=== PATIENT | male | born 1965 | race Caucasian/White ===

== ENCOUNTER 2025-10-11 09:36 | Outpatient (AMB) | payer OTHER, SELFPAY ==
[2025-10-11 09:42] VITALS: BMI 23.9
--- NOTE | 2025-10-11 09:42 | A.PHYSOV ---
Vital Signs 10/11/25 09:42 Height 5 ft 6 in Weight 148 lb BMI 23.9 Intake Visit Reasons: MRI followup Intake Note: Patient is a 60 year old male here today to review recent MRI. [employer] Required: No Allergies No Known Allergies Allergy (Verified 10/11/25 09:44) HPI Comments Details: History of Present Illness The patient is a 60 year old individual presenting for follow-up of chronic pain. The patient's primary complaint is left shoulder pain, which is associated with a lack of strength in the hands and a pulling sensation when attempting to grab objects. This significantly affects the patient's daily life. The patient's medical history is notable for a fall that resulted in a clavicle fracture. A recent MRI of the neck revealed four bulging discs, mild to moderate arthritis, and severe narrowing on the right at C3-4, though this is not believed to be related to the left-sided shoulder pain. The patient has an upcoming appointment with an orthopedist for further evaluation of the shoulder but is apprehensive about potential surgery. For self-management, the patient performs exercises learned in physical therapy using pulleys and also uses a heating pad. Due to pain, the patient sleeps in a recliner, and the current one is old and malfunctioning. The patient has experienced recent weight loss, which has helped to alleviate knee pain. The patient reports significant psychosocial stress related to a family property in [place] being destroyed by a friend, leading to financial strain from the sale and subsequent issues with a bank holding the check. Additional stress comes from a familial dispute over the proceeds of the house sale. Pain Description - Location: Pain is primarily in the left shoulder, with tenderness noted bilaterally in the upper shoulder/neck region. - Quality: Described as a pulling sensation, with associated crunchy sounds with movement. - Associated Symptoms: Weakness in the hands. - Exacerbating Factors: Worsens with movement and when attempting to grab objects. - Alleviating Factors: Temporary relief from trigger point injections, use of a heating pad, and sleeping in a recliner. - Impact on Function: The pain and weakness interfere with daily life and the ability to lift things. [facility] Surgical History (Updated 10/05/25 @ 09:02 by Radha Powers MA) H/O hernia repair Social History (Reviewed 10/11/25 @ 09:44 by JAYNE Abdi Alcohol intake: current Alcohol intake frequency: holidays/special occasions only Patient Tobacco Use Status: Never used Tobacco Review of Systems Narrative Review of Systems - Musculoskeletal: Reports left shoulder pain, hand weakness, a pulling sensation in the arm, and crepitus with movement. - Neurological: Reports a recent episode of toe swelling and a throbbing sensation after prolonged sitting. - Psychiatric: Reports feeling very stressed and frustrated. - Constitutional: Reports recent weight loss. - All other systems were reviewed and are negative. Physical Exam Exam Exam: Physical Exam Cervical Spine: Examination of the cervical spine, there is no visible swelling or deformity. He is tender to bilateral upper trapezius. He is otherwise nontender. Full range of motion of the cervical spine. Special Tests: Axial Compression test: Negative Spurlings test: Negative Lhermitte's sign is Negative Upper Extremities: Full range of motion bilateral upper extremities. Equal rubber curer strength bilaterally. Neuro: Sensation: Intact to upper extremities bilateral to light touch Strength C5 (Elbow Flexion): 5/5 on the left and 5/5 on the right. C6 (Elbow Ext): 5/5 on the left and 5/5 on the right. C7 (Elbow Ext): 5/5 on the left and 5/5 on the right. C8 (Finger Flex): 5/5 on the left and 5/5 on the right. T1 (Finger Abd/Add): 5/5 on the left and 5/5 on the right. DTR: C5 (Biceps): Left 2 Right 2 C6 (Brachioradialis): Left 1 Right 1 C7 (Triceps): Left 2 Right 2 Winter sign: Negative No pathologic clonus. No involuntary movement. Vital Signs: BMI result Body Mass Index 23.9 Office Procedures AMB Trigger Point Inject - Phy Therapeutic Injection Details: Trigger point injection bilateral upper trapezius : Patient was educated about the risks, complications and benefits of trigger point injection. Risks and complications include infection, nerve damage, bleeding, collapsed lung. After discussing these risks complications and benefits the patient is eager to proceed. The patient's left upper trapezius muscle spasm was marked cleansed with an alcohol prep. 1 mL of 1% lidocaine was injected into the trigger point with needling. Patient tolerated the procedure well without immediate complication. The procedure was repeated in the right. 16663-[id number] Point Injection 1 or 2 sites All charges added?: Procedure code (CPT) selection complete Office Meds lidocaine (PF) 20 mg/mL (2 %) injection solution Performing Provider: PROSPER Alves Performing Location: [facility] Administered by: PROSPER Alves on 10/11/25 12:36 Dose Route Admin Location Dispensed Lot Number Expiration Date NDC Nut Roaster Helper 20 mg IM 50 mL [id number] Total Dispensed Waste 50 mL 0 % Assessment & Plan Assessment & Plan (1) Cervicalgia: Code(s): M54.2 - Cervicalgia Category: Medical (2) Myalgia: Code(s): M79.10 - Myalgia, unspecified site Category: Medical Plan Pain Management - Affect: The patient reports feeling very stressed and frustrated due to the pain and its impact on daily life, as well as significant personal and financial stressors. - Analgesia: The patient uses a heating pad and home exercises for pain relief and requested trigger point injections during today's visit for further relief. - Activities of Daily Living: The patient's pain and weakness interfere with daily life, including lifting objects. - Sleep: The patient sleeps in a recliner to remain comfortable. - Aberrant Drug Related Behaviors: No aberrant behaviors were reported or observed. Plan Patient was informed and verbally consented to the use of an ambient scribe for clinic note documentation during this visit. 1. Chronic Left Shoulder Pain The patient complains of left shoulder pain with associated hand weakness and a pulling sensation. The patient will be seen by an orthopedist next week for further evaluation. For immediate relief, trigger point injections were administered in the office today. The patient is encouraged to continue the home exercise program with pulleys and use of a heating pad. 2. Cervicalgia Secondary To Degenerative Disc Disease And Arthritis The results of the recent cervical MRI were reviewed with the patient, which showed four bulging discs and mild to moderate arthritis. It was explained that these findings are unlikely to be the cause of the left shoulder pain. No new interventions are planned for the cervical spine at this time. 3. Pain-Related Sleep Disturbance The patient reports sleeping in a recliner for comfort. Given that the current recliner is old and malfunctioning, a prescription for a new durable medical equipment (DME) lift chair will be provided, with the understanding that insurance coverage is not guaranteed. 4. Acute Stress Reaction The patient reports significant stress from recent personal and financial events. The impact of stress on the patient's overall well-being and pain perception was acknowledged. Ongoing symptomatic pain management will be provided. Today consented to trigger point injection bilateral upper trapezius. He is given post-injection instructions, recommend: Moist heat compresses for 15 minutes 5 times daily. Continue his home exercise plan and medications as prescribed. Follow-up with our office as needed. Discussion Notes I reviewed the patient's cervical MRI results, which showed four bulging discs and mild to moderate arthritis. I explained that while there is severe nerve root narrowing on the right, it is unlikely to be the cause of the patient's left-sided shoulder pain. We discussed that the patient will follow up with orthopedics for further evaluation. I obtained consent and performed trigger point injections for symptomatic relief. I also agreed to write a prescription for a DME lift chair, informing the patient that insurance may not cover it. Patient Instructions - Continue with your home exercises and use of your heating pad for your shoulder and back pain. - Make sure to attend your appointment with the clinical field specialist next Friday to have your shoulder evaluated. - We will provide you with a prescription for a new recliner (lift chair). - Follow up in this clinic as needed for your pain. Orders: Orders AMB Trigger Point Injection - Physiatry Today M79.10 - Myalgia, unspecified site Coding Level of Care Code Tele Est Pt Level 3 (48959) Diagnoses Cervicalgia M54.2 Myalgia M79.10 CPT Codes Therapeutic Injection - Ther Injection 1: 06210-[id number] Point Injection 1 or 2 sites ([id number])
--- OUTSIDE RECORDS SUMMARY | 2025-10-11 10:29 | XMS_ITS | Clinical Summary ---
Author Organization 175 [facility] Address [address] [place] [address] Phone Care Team Providers Care Pressure Control Supervisor Name Role Phone Dionicio Sherman MD Primary Care Provider [phone] Allergies No known active allergies Medications acetaminophen (TYLENOL) 500 mg tablet Take 2 Tablets by mouth every 8 hours for 30 days. 06/04/20 21 Active MELATONIN ORAL Take by mouth. Active testosterone 20.25 mg/1.25 gram (1.62 %) gel in metered-dose pump APPLY 2 PUMPS DAILY INSTRUCTED TO A DRY UPPER BODY AREA 01/11/20 21 Active hydrOXYzine HCL (ATARAX) 25 mg tablet Take 1 tablet (25 mg total) by mouth 3 (three) times a day. 30 each 2 03/08/20 25 Active doxepin (SINEquan) 50 mg capsule Take 1 capsule (50 mg total) by mouth at bedtime. 03/09/20 25 Active gabapentin (NEURONTIN) 600 mg tablet Take 1 tablet (600 mg total) by mouth 1 (one) time each day. 03/23/20 25 Active clonazePAM (KlonoPIN) 0.5 mg tablet Take 1 tablet (0.5 mg total) by mouth 2 (two) times a day if needed. Active atorvastatin (LIPITOR) 10 mg tablet TAKE 1 TABLET (10 MG TOTAL) BY MOUTH 1 (ONE) TIME EACH DAY. 90 tablet 1 06/09/20 25 Active levothyroxine (SYNTHROID, LEVOTHROID) 50 mcg tablet TAKE 1 TABLET (50 MCG TOTAL) BY MOUTH 1 (ONE) TIME EACH DAY. 90 tablet 1 06/09/20 25 Active lisinopriL (PRINIVIL,ZEST RIL) 10 mg tabletIndicati ons:Hypertensi on, unspecified type TAKE 1 TABLET (10 MG TOTAL) BY MOUTH 1 (ONE) TIME EACH DAY. 90 tablet 09/06/20 Active cholecalcifero l (VITAMIN D-3) 50 mcg (2,000 unit) tablet Take 1 tablet (2,000 Units total) by mouth 1 (one) time each day. 90 tablet 1 09/30/20 25 Active tirzepatide, weight loss, (Zepbound) 10 mg/0.5 mL injection Inject 0.5 mL (10 mg total) under the skin every 7 (seven) days for 28 days. 2 mL 09/30/20 25 025 Active omeprazole (PriLOSEC) [address] capsule 09/02/20 Active diclofenac (VOLTAREN) 50 mg EC tablet Take 1 tablet (50 mg total) by mouth 2 (two) times a day. Do not crush, chew, or split. 28 tablet 2 10/04/20 Active clobetasoL (TEMOVATE) 0.05 % cream Apply topically 2 (two) times a day. 30 g 2 10/04/20 25 026 Active clobetasoL (TEMOVATE) 0.05 % cream Apply topically 2 (two) times a day. 30 g 2 01/07/20 25 025 Discontinued(Re order) tirzepatide, weight loss, (Zepbound) 7.5 mg/0.5 mL injection Inject 0.5 mL (7.5 mg total) under the skin every 7 (seven) days. 2 mL 09/02/20 25 025 Discontinued diclofenac (VOLTAREN) 50 mg EC tablet Take 1 tablet (50 mg total) by mouth 2 (two) times a day. Do not crush, chew, or split. 28 tablet 09/07/20 25 025 Discontinued(Re order) Zepbound 7.5 mg/0.5 mL injection INJECT 0.5 ML (7.5 MG TOTAL) UNDER THE SKIN EVERY 7 (SEVEN) DAYS. 2 mL 09/30/20 25 025 Discontinued omeprazole (PriLOSEC) [address] capsule TAKE 1 CAPSULE BY MOUTH EVERY DAY . DO NOT CRUSH OR CHEW. 30 capsule 5 10/04/20 25 025 Discontinued(Di scontinued by another clinician) Active Problems Problem Noted Date Diagnosed Date Depression 08/30/2024 Overview (08/30/2024): used to take effexor, clonazepam. no longer taking Incisional hernia 08/30/2024 Overweight (BMI 25.0-29.9) 01/22/2022 Recurrent ventral hernia 01/15/2021 Chronic abdominal pain 04/13/2020 Suicidal overdose ([facility] V24, [facility] V28) Overview (08/30/2024): [facility] 07/27/19-- 6mg klonopin, 100mg vistaril, 3600mg gabapentin Chronic bilateral low back pain without sciatica 03/25/2019 Adrenal adenoma 12/24/2018 Overview (08/30/2024): Left Adrenal Adenoma Insomnia 06/08/2018 Testosterone deficiency 06/08/2018 Pneumothorax, traumatic 05/04/2018 Overview (08/30/2024): S/P fall 04/02/18. Left rib and clavicle fractures Concussion syndrome 04/17/2018 Chronic allergic rhinitis 10/10/2016 Chronic sinusitis 10/10/2016 Erectile dysfunction 04/14/2015 Vitamin D deficiency 12/31/2012 Hypothyroid 04/20/2012 Anxiety 04/14/2012 Hyperlipidemia 12/17/2011 Overview (08/30/2024): Simvastatin (10 or 15 mg pt unsure) 5+ years Hypertension 12/17/2011 Overview (08/30/2024): Lisinopril 10 mg daily Hydrochlorothiazide 10 mg daily Both for 5+ years Encounters Date Type Department Care Team Description 09/30/2025 Telephone Bariatric Surgery - [address] [place] [address] Maral Villarreal PA 09/14/2025 11:10 AM EST - 09/14/2025 11:59 PM EST Hospital Encounter Radiology Department - [address] [phone] Cervicalgia; Radiculopathy, cervical region; Myalgia, other site Discharge Disposition: Home or Self Care 09/08/2025 11:00 AM EDT Office Visit [facility] - [facility] [address] [place], [place] [address], [place] [phone] Dionicio Sherman MD Chronic left shoulder pain (Primary Dx); Immunization due; Mild episode of recurrent major depressive disorder (CMS/HCC V24); Insomnia, unspecified type 09/06/2025 [facility] [address] [place], [place] [address] [place], [place] [phone] Dionicio Sherman MD 09/06/2025 Telephone Internal Medicine - [facility] [address] [place], [place] [address], [place] [phone] Dionicio Sherman MD 08/31/2025 Telephone Bariatric Surgery - [place] [address] [phone] Lilli Escalona MD 08/18/2025 Telephone Internal Medicine - [facility] [address] [place], [place] [address] [place], [place] [phone] Dionicio Sherman MD 08/08/2025 Telephone Bariatric Surgery [facility] [address] [phone] Lilli Escalona MD 07/26/2025 Telephone Internal Medicine - [facility] [address] [place], [place] [address], [place] [phone] Jocelin Hickey MA 07/22/2025 1:05 PM EDT - 07/22/2025 11:59 PM EDT Hospital Encounter Xray - [facility] [address] [facility] [place], [place] [phone] SOB (shortness of breath) Discharge Disposition: Home or Self Care 07/22/2025 11:30 AM EDT Office Visit [facility] - [facility] [address] [facility] [place] [address] Prasanna Mcgee NP SOB (shortness of breath) (Primary Dx); Tiredness; Hyperlipidemia, unspecified hyperlipidemia type; Hypothyroidism, unspecified type; Vitamin D deficiency; Snoring; Elevated vitamin B12 level 07/21/2025 1:30 PM EDT Office Visit Bariatric Surgery - [place] [address] [place] [address] Lilli Escalona MD Over weight (Primary Dx); Hypertension, unspecified type; Hyperglycemia from Last 3 Months Immunizations Immunization Administration Dates Next Due Influenza Quadravalent, 0.5m l (Fluzone High-dose) 65yo and older 09/21/2023,08/16/2018 Influenza trivalent, 0.5mL, preservative free (Fluarix; FluLaval; Fluzone) ages 6mo and older (Afluria) 3 years and older 07/23/2022,08/03/2021,07/19/2019,10/07,06/12/2016,07/18/2015,08/23/2014 Influenza trivalent, MDCK, 0 .5mL, preservative free (Flucelvax) 6mo and older 09/08/2025 Moderna Covid-19 Bivalent, O riginal + Ba.1 (Non-US Tradename Spikevax Bivalent) 07/23/2022 SubC Control SARS-CoV-2 COVID-19, mRNA, LNP-S, preservative free 02/26/2022,09/30/2021,02/19/2021,01/29 Pneumococcal conjugate 13 va lent (Prevnar 13, PCV13) 2mo and older 01/28/2020 Pneumococcal polysaccharide 23 valent (Pneumovax 23) 2yo and older 06/12/2016 Td Tetanus diptheria (Tdvax) 7yo and older 12/27/2022 Tdap Tetanus diptheria acell ular pertussis (Boostrix; Adacel) 7yo and older 04/14/2012 Zoster Live 11/28/2021,08/03/2021 Zoster recombinant (Shingrix ) 19yo and older 03/23/2018 Surgical History Surgery Date Site/Laterality Comments APPENDECTOMY PROCEDURE: SC APPENDEC INDICATED PURPOSE OTH MAJOR PX NOT SPX COLONOSCOPY 03/02/2015 PROCEDURE: HISTORICAL COLONOSCOPY; COMMENT: incomplete to 35 cm. OTHER SURGICAL HISTORY PROCEDURE: SC LAPS COLECTOMY PRTL W/END CLST & CLSR DSTL SGM HERNIA REPAIR PROCEDURE: HISTORICAL HERNIA REPAIR/ING OTHER SURGICAL HISTORY PROCEDURE: SC COLECTOMY PARTIAL W/ANASTOMOSIS Medical History Medical History Date Comments Hypertension 12/17/2011 DX:Hypertension Hyperlipidemia 12/17/2011 DX:Hyperlipidemi a Depression DX:Depression; C OMMENT: used to take effexor, clonazepam. no longer taking H/O colonoscopy 03/02/2015 DX:H/O colonosco py; COMMENT: Difficult sigmoid colon at incomplete CN 03/02/2015. Consider colonoscopy at the hospital with anesthesia 2019. Hypertension DX:Hypertension Colostomy care ([facility] V24, [facility] V28) DX:Colostomy care ([facility]) Depressive disorder DX:Depressiv e disorder Disorder of adrenal gland ([facility] [place]24) DX:Disorder of adrenal gland ([facility]) Nicotine dependence DX:Nicotine dependence Falling DX:Falling halfway (current) use of antibiotics DX:buttermaker helper (current) use of antibiotics Incisional hernia DX:Incisional hernia Adrenal adenoma 12/24/2018 DX:Adrenal adeno ma; COMMENT: Left Adrenal Adenoma Anxiety 04/14/2012 DX:Anxiety Chronic abdominal pain 04/13/2020 DX:Chroni c abdominal pain Chronic allergic rhinitis 10/10/2016 DX:Chr onic allergic rhinitis Chronic bilateral low back p ain without sciatica 03/25/2019 DX:Chronic bilateral low monica k pain without sciatica Chronic sinusitis 10/10/2016 DX:Chronic sin usitis Class 2 severe obesity due t o excess calories with serious comorbidity and body mass index (BMI) of 37.0 to 37.9 in adult 01/15/2021 DX:Class 2 severe obesity du e to excess calories with serious comorbidity and body mass index (BMI) of 37.0 to 37.9 in adult ([facility]) Erectile dysfunction 04/14/2015 DX:Erectile dysfunction Hypothyroid 04/20/2012 DX:Hypothyroid Primary insomnia 06/08/2018 DX:Primary inso mnia Suicidal overdose ([facility] V 24, [facility] V28) 07/29/2019 DX:Suicidal overdose (HCC); COMMENT: [facility] 07/27/19-- 6mg klonopin, 100mg vistaril, 3600mg gabapentin Testosterone deficiency 06/08/2018 DX:Testo sterone deficiency Tobacco abuse 02/10/2017 DX:Tobacco abuse Vitamin D deficiency 12/31/2012 DX:Vitamin D deficiency Class 1 obesity due to exces s calories with serious comorbidity and body mass index (BMI) of 32.0 to 32.9 in adult 01/15/2021 DX:Class 1 obesit y due to excess calories with serious comorbidity and body mass index (BMI) of 32.0 to 32.9 in adult Family History Medical History Relation Name Comments Stomach cancer Father COPD Mother Relation Name Status Comments Brother Alive Father (Age 84) Mother (Age 90) Sister Alive Social History Tobacco Use Types Packs/Day Years Used Date Smoking Tobacco: Former Cigarettes 0 Q uit: 11/10/2017 Smokeless Tobacco: Never Tobacco Cessation:Counseling Given: Not Answered Alcohol Use Standard Drinks/Week Comments Yes 0 (1 standard drink = 0.6 oz pur e alcohol) Housing Instability Answer Date Recorde d Are you worried that in the next 2 months you may not have stable housing? No 10/04/2024 Food Access & Nutrition Answer Date Rec orded Do you have access to a vari ety of food including fruits and vegetables? Yes 10/04/2024 Health Literacy Answer Date Recorded How often do you need to hav e someone help you when you read instructions, pamphlets, or other written material from your doctor or pharmacy? Never 10/04/2024 Caregiver: How often do you need to have someone help you when you read instructions, pamphlets, or other written material from your doctor or pharmacy? Not on file 10/04/2024 Financial Risk Answer Date Recorded How hard is it for you to pa y for the very basics like food, housing, medical care, and air conditioning / heating? Somewhat hard 10/04/2024 Transportation Answer Date Recorded Has the lack of transportati on kept you from meetings, work, or from getting things needed for daily living? No Has the lack of transportati on kept you from medical appointments or from getting medications? No 10/04/2024 Social Isolation Answer Date Recorded How often do you feel lonely or isolated from those around you? Sometimes 10/04/2024 Food Risk Answer Date Recorded Within the past 12 months we worried whether our food would run out before we got money to buy more. Never true 10/04/2024 Within the past 12 months th e food we bought just didn't last and we didn't have money to get more. Never true 10/04/2024 Dependent Care Answer Date Recorded Do you need help finding or paying for care for your loved ones. For example, children teacher or elderly care for an older adult? No 10/04/2024 Education Answer Date Recorded Do you think completing more education or training, like finishing a GED, going to college, or learning a trade, would be helpful for you? No 10/04/2024 Employment and Income Answer Date Recor ded During the last four weeks, have you been actively looking for work? Yes 10/04/2024 Living Situation Answer Date Recorded What is your living situation? Unrecognized valu e 10/04/2024 Sex and Gender Information Value Date Recorded Sex Assigned at Not on file Legal Sex Male 5:28 PM EST Gender Identity Not on file Sexual Orientation Not on file Obstetrics History Last Filed Vital Signs Vital Sign Reading Time Taken Comments Blood Pressure 114/70 09/08/2025 10:59 AM EDT Pulse 90 09/08/2025 10:59 AM EDT Temperature 36.6 C (97.8 F) 07/21/2025 1:41 PM EDT Respiratory Rate - - Oxygen Saturation 100% 07/07/2025 1:30 PM EDT Inhaled Oxygen Concentration - - Weight 74.4 kg (164 lb) 09/08/2025 10:59 AM EDT Height 167.6 cm (5' 6 ) 09/08/2025 10:59 AM EDT Body Mass Index 26.47 09/08/2025 10:59 AM EDT Plan of Treatment Upcoming Encounters Date Type Department Care Team (Late st Contact Info) Description 10/18/2025 1:30 PM EST Consult Orthopedic Surgery - [place] [address] [phone] Lis Walker MD [address] [address] 12/06/2025 8:30 AM EST Nutrition Bariatric Surgery - [place] [address] [phone] Magali Levy, RD [address] [address] 01/17/2026 10:45 AM EDT Office Visit Bariatric Surgery - [place] [address] [address] Lilli Escalona MD [address] [place] [address] Health Maintenance Due Date Last Done Comments Zoster Vaccines (2 of 2) 01/23/2022 022, 08/03/2021, 03/23/2018 Medicare Annual Wellness Visit 10/19/2022 Pneumococcal Vaccine: 50+ Years (3 of 3 - PCV20 or PCV21) 01/27/2025 01/28/2020, 06/12/2016 COVID-19 Vaccine ( season) 2025 08/05/2023, 07/23/2022, 02/26/2022, Additional history exists Social Influencers of Health Screening 10/04/2025 10/04/2024 Hypertension/CHF/CAD Annual BMP Blood Test 04/20/2026 04/20/2025, 01/07/2025 Colorectal Cancer Screening: Colonoscopy 12/14/2029 12/14/2019, 03/02/2015 Cholesterol Screening (Lipid Panel) 01/07/2030 01/07/2025, 04/09/2024, 04/09/2024 DTaP,Tdap,and Td Vaccines (3 - Td or Tdap) 12/27/2032 12/27/2022, 04/14/2012 RSV Immunization Adult Patients (1 - 1-dose 75+ series) 2038 Hepatitis C Screening Completed 06/03/2018 HIV Screening Completed 01/07/2025, 02/25/2017 Depression Screening Completed 01/11/2025, 04/09/20 24 Influenza Vaccine Completed 09/08/2025, , 08/05/2023, Additional history exists HIB Vaccines Aged Out No longer eligi ble based on patient's age to complete this topic HPV Vaccines Aged Out No longer eligi ble based on patient's age to complete this topic Hepatitis A Vaccines Aged Out No long er eligible based on patient's age to complete this topic Hepatitis B Vaccines Aged Out No long er eligible based on patient's age to complete this topic IPV Vaccines Aged Out No longer eligi ble based on patient's age to complete this topic MMR Vaccines Aged Out No longer eligi ble based on patient's age to complete this topic Meningococcal ACWY Vaccine Aged Out N o longer eligible based on patient's age to complete this topic Meningococcal B Vaccine Aged Out No l onger eligible based on patient's age to complete this topic RSV Immunization Patients Under 20 months Aged Out No longer eligible based on patient's age to complete this topic Varicella Vaccines Aged Out No longer eligible based on patient's age to complete this topic Procedures Procedure Name Priority Date/Time Associated Diagnosis Comments MR CERVICAL SPINE WO CONTRAST Routine 09/14/2025 12:03 PM EST Cervicalgia Radiculopathy, cervical region Myalgia, other site XR CHEST 2 VIEWS Routine 07/22/2025 1:14 PM EDT SOB (shortness of breath) HELICOBACTER PYLORI BREATH TEST Routine 07/22/2025 12:42 PM EDT Abdominal bloating VITAMIN D 25 HYDROXY Routine 07/22/2025 12:42 PM EDT Vitamin D deficiency THYROID STIMULATING HORMONE WITH REFLEX TO FREE T4 AND FREE T3 Routine 07/22/2025 12:42 PM EDT Hypothyroidism, unspecified type VITAMIN B12 Routine 07/22/2025 12:42 PM EDT Tiredness COMPREHENSIVE METABOLIC PANEL Routine 04/20/2025 2:33 PM EDT Epigastric pain HIV 1, 2 ANTIBODY, P24 ANTIGEN WITH REFLEX TO DIFFERENTIATION Routine 01/07/2025 9:11 AM EST STD exposure LIPID PANEL WITH REFLEX TO DIRECT LDL Routine 01/07/2025 9:11 AM EST Screening for hyperlipidemia DEPRESSION SCREENING Routine 04/09/2024 COLONOSCOPY Routine 12/14/2019 HEPATITIS C SCREENING Routine 06/03/2018 from Last 3 Months or Most Recently Relevant to Health Maintenance Results * MR Cervical Spine wo Contrast (09/14/2025 12:03 PM EST) Anatomical Region Laterality Modality C-spine, Spine Magnetic Resonan ce 09/14/2025 5:15 PM EST Impressions 09/15/2025 4:42 PM EST Impression: 1. Multilevel degenerative changes most significant at C3-C4 with severe right and mild left neuroforaminal stenosis and mild spinal canal stenosis. 2. Incidental arachnoid cyst within the posterior fossa -------- FINAL REPORT -------- Dictated By: Valerie Santiago Dictated Date: 09/14/2025 17:15 ET Assigned Physician: Valerie Santiago Reviewed and Electronically Signed By: Valerie Santiago Signed Date: 09/15/2025 16:42 ET Workstation ID: [id number] Transcribed By: Self Edit Transcribed Date: 09/14/2025 17:16 ET Narrative 09/15/2025 4:42 PM EST MRI CERVICAL SPINE Clinical Statement: chronic neck pain Comparison: Cervical spine radiograph from 04/17/2020 Technique: Multiplanar, multisequence MRI images of the cervical spine were obtained without intravenous contrast. Findings: There is a normal cervical lordosis. The craniocervical junction is normal. Vertebral body and disc space height are maintained. Vertebral body marrow is grossly within normal limits. Disc desiccation at multiple levels. Cord signal is normal. The visualized posterior fossa structures are normal. Incidentally noted probable arachnoid cyst within the posterior fossa. C2-C3: No neuroforaminal or spinal canal stenosis C3-C4: Broad-based disc bulge and uncovertebral arthropathy resulting in severe right and mild left neuroforaminal stenosis, mild spinal canal stenosis C4-C5: Broad-based disc bulge and central disc protrusion with uncovertebral arthropathy resulting in mild right neuroforaminal stenosis, no left-sided neuroforaminal stenosis, mild spinal canal stenosis C5-C6: Broad-based disc bulge with uncovertebral arthropathy resulting in moderate bilateral neuroforaminal stenosis and mild spinal canal stenosis C6-C7: Broad-based disc bulge without neuroforaminal or spinal canal stenosis C7-T1: No neuroforaminal or spinal canal stenosis Procedure Note Valerie Santiago MD - 09/15/2025 MRI CERVICAL SPINE Clinical Statement: chronic neck pain Comparison: Cervical spine radiograph from 04/17/2020 Technique: Multiplanar, multisequence MRI images of the cervical spinewere obtained without intravenous contrast. Findings: There is a normal cervical lordosis. The craniocervicaljunction is normal. Vertebral body and disc space height are maintained.Vertebral body marrow is grossly within normal limits. Disc desiccation atmultiple levels. Cord signal is normal. The visualized posterior fossastructures are normal. Incidentally noted probable arachnoid cyst withinthe posterior fossa. C2-C3: No neuroforaminal or spinal canal stenosis C3-C4: Broad-based disc bulge and uncovertebral arthropathy resulting insevere right and mild left neuroforaminal stenosis, mild spinal canalstenosis C4-C5: Broad-based disc bulge and central disc protrusion withuncovertebral arthropathy resulting in mild right neuroforaminal stenosis,no left-sided neuroforaminal stenosis, mild spinal canal stenosis C5-C6: Broad-based disc bulge with uncovertebral arthropathy resulting inmoderate bilateral neuroforaminal stenosis and mild spinal canalstenosis C6-C7: Broad-based disc bulge without neuroforaminal or spinal canalstenosis C7-T1: No neuroforaminal or spinal canal stenosis IMPRESSION: Impression: 1. Multilevel degenerative changes most significant at C3-C4 with severeright and mild left neuroforaminal stenosis and mild spinal canalstenosis. 2. Incidental arachnoid cyst within the posterior fossa -------- FINAL REPORT -------- Dictated By: Valerie Santiago Dictated Date: 09/14/2025 17:15 ET Assigned Physician: Valerie Santiago Reviewed and Electronically Signed By: Valerie Santiago Signed Date: 09/15/2025 16:42 ET Workstation ID: [id number] Transcribed By: Self Edit Transcribed Date: 09/14/2025 17:16 ET Dave CHENG IMG MRI PROCEDURES Final Resul t * XR Chest 2 Views (07/22/2025 1:14 PM EDT) Anatomical Region Laterality Modality Body Radiographic Winnie ging 07/22/2025 2:38 PM EDT Narrative 07/22/2025 2:40 PM EDT Chest, 2 views. History shortness of breath activity. Comparison with previous examinations, latest from 11/28/2020. There is no pneumothorax, pleural effusions or focal consolidations. Cardiomediastinal silhouette is stable in appearance. There is no significant interval change since prior study. CONCLUSIONS: No acute radiographic abnormalities. No significant interval change. -------- FINAL REPORT -------- Dictated By: Christy Mccabe Dictated Date: 07/22/2025 14:38 ET Assigned Physician: Christy Mccabe Reviewed and Electronically Signed By: Christy Mccabe Signed Date: 07/22/2025 14:40 ET Workstation ID: [id number] Transcribed By: Self Edit Transcribed Date: 07/22/2025 14:38 ET Procedure Note Christy Mccabe MD - 07/22/2025 Chest, 2 views. History shortness of breath activity. Comparison with previous examinations, latest from 11/28/2020. There is no pneumothorax, pleural effusions or focal consolidations.Cardiomediastinal silhouette is stable in appearance. There is nosignificant interval change since prior study. CONCLUSIONS: No acute radiographic abnormalities. No significant intervalchange. -------- FINAL REPORT -------- Dictated By: Christy Mccabe Dictated Date: 07/22/2025 14:38 ET Assigned Physician: Christy Mccabe Reviewed and Electronically Signed By: Christy Mccabe Signed Date: 07/22/2025 14:40 ET Workstation ID: [id number] Transcribed By: Self Edit Transcribed Date: 07/22/2025 14:38 ET us Prasanna Mcgee NP IMG XR PROCEDURES Final Result * Thyroid stimulating hormone with reflex to free t4 and free t3 (07/22/2025 12:42 PM EDT) TSH 1.72 0.40 - 4.00 mcIU/mL LAB CHEMISTRY METHOD 07/22/2025 4:06 PM EDT [facility] Blood Venous blood specimen / Unknown Venipuncture / Unknown 07/22/2025 12:42 PM EDT 07/22/2025 12:42 PM EDT us Prasanna Mcgee NP LAB BLOOD ORDERABLES Final Res ult Performing Organization Address City/[facility]/ZIP Co de Phone Number [facility] [address] [place] [address], [place] [phone] * Helicobacter pylori breath test (07/22/2025 12:42 PM EDT) [facility] H Pylori Breath Test Negative Negative LAB CHEMISTRY METHOD 07/23/2025 9:44 AM EDT [facility] Breath Oral cavity structure / Unknown Non-blood Collection / Unknown 07/22/2025 12:42 PM EDT 07/22/2025 12:42 PM EDT us Paloma Griffin NP LAB BODY FLUIDS AND STOOLS ORDE RABLES Final Result [facility] [address] [place] [address], [place] [phone] * Vitamin D 25 hydroxy (07/22/2025 12:42 PM EDT) Vit D, 25-Hydroxy 42.2 30.0 - 80.0 ng/mL LAB CHEMISTRY METHOD 07/22/2025 4:05 PM EDT [facility] Blood Venous blood specimen / Unknown Venipuncture / Unknown 07/22/2025 12:42 PM EDT 07/22/2025 12:42 PM EDT Prasanna Arely [employer] [facility] BLOOD ORDERABLES Final Res ult Performing Organization Address City/[facility]/ZIP Co de Phone Number [facility] [address] [place] [address], [place] [phone] * (ABNORMAL) Vitamin B12 (07/22/2025 12:42 PM EDT) [facility] Vitamin B-12 >2,000(H) 250 - 900 pcg/mL LAB CHEMISTRY METHOD 07/22/2025 4:13 PM EDT [facility] Blood Venous blood specimen / Unknown Venipuncture / Unknown 07/22/2025 12:42 PM EDT 07/22/2025 12:42 PM EDT us Prasanna Mcgee NP LAB BLOOD ORDERABLES Final Res ult Performing Organization Address [facility]/ZIP Co de Phone Number [facility] [address] [place] [address], [place] [phone] * (ABNORMAL) Comprehensive metabolic panel (04/20/2025 2:33 PM EDT) [facility] Sodium 136 133 - 145 mmol/L LAB CHEMISTRY METHOD 04/20/2025 7:16 PM EDT [facility] Potassium 4.0 3.5 - 5.5 mmol/L LAB CHEMISTRY METHOD 04/20/2025 7:16 PM EDT [facility] Chloride 102 96 - 110 mmol/L LAB CHEMISTRY METHOD 04/20/2025 7:16 PM EDT [facility] CO2 29 21 - 32 mmol/L LAB CHEMISTRY METHOD 04/20/2025 7:16 PM EDT [facility] Anion Gap 5 3 - 11 LAB CHEMISTRY METHOD 04/20/2025 7:16 PM [facility] Glucose 106(H) 70 - 100 mg/dL LAB CHEMISTRY METHOD 04/20/2025 7:16 PM [facility] BUN 18 5 - 25 mg/dL LAB CHEMISTRY METHOD 04/20/2025 7:16 PM [facility] Creatinine 0.91 0.70 - 1.30 mg/dL LAB CHEMISTRY METHOD 04/20/2025 7:16 PM [facility] eGFR 95 >=60 mL/min/1. 73m2 LAB CHEMISTRY METHOD 04/20/2025 7:16 PM [facility] Comment:Calculation based on the Chronic Kidney Disease Epidemiology Collaboration (CKD-EPI) equation refit without adjustment for race. BUN/Creatinine Ratio 19.8 LAB CHEMISTRY METHOD 04/20/2025 7:16 PM [facility] Calcium 9.6 8.5 - 10.5 mg/dL LAB CHEMISTRY METHOD 04/20/2025 7:16 PM [facility] AST (SGOT) 21 10 - 42 unit/L LAB CHEMISTRY METHOD 04/20/2025 7:16 PM [facility] ALT (SGPT) 34 10 - 60 unit/L LAB CHEMISTRY METHOD 04/20/2025 7:16 PM [facility] Alkaline Phosphatase 65 42 - 121 unit/L LAB CHEMISTRY METHOD 04/20/2025 7:16 PM [facility] Total Protein 7.5 6.0 - 8.0 g/dL LAB CHEMISTRY METHOD 04/20/2025 7:16 PM [facility] Albumin 4.3 3.2 - 5.0 g/dL LAB CHEMISTRY METHOD 04/20/2025 7:16 PM [facility] Total Bilirubin 1.1 0.0 - 1.4 mg/dL LAB CHEMISTRY METHOD 04/20/2025 7:16 PM EDT [facility] Blood Venous blood specimen / Unknown Venipuncture / Unknown 04/20/2025 2:33 PM EDT 04/20/2025 2:33 PM EDT us Dionicio Sherman MD LAB BLOOD ORDERABLES Final Res ult Performing Organization Address [facility]/ZIP Co de Phone Number [facility] [address] [place] [address], [place] [phone] * HIV 1,2 antibody, p24 antigen with reflex to differentiation (01/07/2025 9:11 AM EST) Pathologist [facility] HIV Combo AB/AG Negative Negative LAB CHEMISTRY METHOD 01/07/2025 2:35 PM EST [facility] Blood Venous blood specimen / Unknown Venipuncture / Unknown 01/07/2025 9:11 AM EST 01/07/2025 9:11 AM EST Narrative [facility] - 01/07/2025 2:35 PM EST This assay is a 4th generation assay allowing for earlier detection of HIV infection by detecting the presence of the HIV-1 p24 antigen as well as the traditional antibodies to HIV type 1 (including group O) and type 2. Use of a 4th generation assay is the current CDC recommendation for HIV screening. us Dionicio Sherman MD LAB BLOOD ORDERABLES Final Res ult Performing Organization Address [facility]/ZIP Co de Phone Number [facility] [address] [place] [address], [place] [phone] * Lipid panel with reflex to direct LDL (01/07/2025 9:11 AM EST) [facility] Cholesterol 121 0 - 200 mg/dL LAB CHEMISTRY METHOD 01/07/2025 12:22 PM EST [facility] Triglycerides 91 0 - 150 mg/dL LAB CHEMISTRY METHOD 01/07/2025 12:22 PM EST [facility] HDL 48 >=40 mg/dL LAB CHEMISTRY METHOD 01/07/2025 12:22 PM EST [facility] LDL Calculated 55 0 - 100 mg/dL LAB CHEMISTRY METHOD 01/07/2025 12:22 PM EST [facility] VLDL Cholesterol Samir 18.2 mg/dL LAB CHEMISTRY METHOD 01/07/2025 12:22 PM EST [facility] Non HDL Chol. (LDL+VLDL) 73 <145 mg/dL LAB CHEMISTRY METHOD 01/07/2025 12:22 PM EST [facility] Chol/HDL Ratio 2.5 0.0 - 4.4 LAB CHEMISTRY METHOD 01/07/2025 12:22 PM [facility] Blood Venous blood specimen / Unknown Venipuncture / Unknown 01/07/2025 9:11 AM EST 01/07/2025 9:11 AM EST Dionicio Sherman MD LAB BLOOD ORDERABLES Final Res ult [facility] [address] [place] [address], * Depression Screening (04/09/2024) [facility] Depression Screening abstracted Historical Provider HEALTH MAINTENANCE Final Result * Colonoscopy (12/14/2019) [facility] Colonoscopy No interpreta tion,abstr acted Anatomical Region Laterality Modality Other Historical Lizette SANDOVAL HEALTH MAINTENANCE Final Result * Hepatitis C Screening (06/03/2018) [facility] Hepatitis C Screening abstracted Historical Lizette SANDOVAL HEALTH MAINTENANCE Final Result from Last 3 Months or Most Recently Relevant to Health Maintenance Insurance [employer] MEDICARE Member Subscriber Plan / Payer (Ef fective 2020-Present) Name:CJ SIMMONS Relation to Subscriber:Self Name:Cj Simmons Payer ID:[id number] Group ID:[id number] Type:Not on file Address: [place] [address] [address] [place] [id number] Care Teams Pressure Control Supervisor Relationship Specialty Start Date End Date Dionicio Sherman MD [address] [place] [id number] PCP - General Internal Medicine 09/14/24
--- OUTSIDE RECORDS SUMMARY | 2025-10-11 10:29 | XMS_ITS | Encounter Summary ---
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 For example, child and adolescent psychologist or elderly care for an older adult? [...] on file Sexual Orientation Not on file documented as of this encounter Progress Notes * Dionicio Sherman MD - 09/06/2025 2:43 PM EDT I am not quite sure what his disability ( anxiety?) is however if he was deemed disabled than the letter needs to come from the specialist that said he was disabled * Yael Louis MA - 09/06/2025 1:47 PM EDT Please see letter dated 08/18 created in your absence Pt is stating it needs to state he is disabled, is he? I don't see any documentation of this * Diana Lance MA - 09/06/2025 1:27 PM EDT I was not involved with this letter. * Christy Ponce MA - 09/06/2025 10:56 AM EDT Letter was written by solange Mims to forms about [employer] denial, thank you. * Deidra Leyva - 09/06/2025 10:20 AM EDT Pt is requesting a new letter to be written by pcp pt was seen recently and letter was written however the [employer] declined it. Pt is on disability and per last message it was to state: that ptis disabled and unable to work for 12 consecutive months it was unclear and so they told him to speak to pcp to assist with this. Please call pt with any questions please call pt when completed documented in this encounter Plan of Treatment Upcoming Encounters Date Type Department Care Team (Late st Contact Info) Description 10/18/2025 1:30 PM EST Consult Orthopedic Surgery - [place] [address] [facility] [address] [place] [phone] Lis Walker MD 175 [facility] 160 [place] [address] 12/06/2025 8:30 AM EST Nutrition Bariatric Surgery - [place] 175 [facility] 120 [place] [phone] Magali Levy, KYAW 175 [facility] 120 [place] [phone] 01/17/2026 10:45 AM EDT Office Visit Bariatric Surgery - [place] [address] [facility] [address] [place] [address] Lilli Escalona MD [address] [place] [phone] documented as of this encounter Visit Diagnoses Not on filedocumented in this encounter Additional Health Concerns Assessment Noted Time PHQ-9 Depression Total Score: 0 01/12/20 25 10:07 AM EST documented as of this encounter Care Teams Customs Import Specialist Relationship Specialty Start Date End Date Dionicio Sherman MD [address] [place] [address] PCP - General Internal Medicine 09/14/24 documented as of this encounter
--- OUTSIDE RECORDS SUMMARY | 2025-10-11 10:29 | XMS_ITS | Clinical Summary ---
Author Organization [facility] Address [address] [address] Phone Care Team Providers Care Cottrell Operator Name Role Phone Dionicio Sherman MD Primary Care Provider + Allergies No known active allergies Medications MELATONIN ORAL Take by mouth. Active ARIPiprazole (ABILIFY) 5 MG tablet 03/05/2023 Active atorvastatin (LIPITOR) 10 MG tablet 03/09/2023 Active benztropine (COGENTIN) 0.5 MG tablet Take 1 tablet by mouth every morning. 03/01/2023 Active traZODone (DESYREL) 100 MG tablet 03/05/2023 Active sertraline (ZOLOFT) 100 MG tablet Take 1 tablet by mouth every morning. 02/20/2023 Active levothyroxine (SYNTHROID, LEVOTHROID) 50 MCG tablet Take 1 tablet by mouth every morning. 01/28/2023 Active VITAMIN D3 50 mcg (2,000 unit) capsule Take 1 capsule by mouth every morning. 02/28/2023 Active hydrOXYzine HCL (ATARAX) 10 MG tablet 03/03/2023 Active clonazePAM (KLONOPIN) 1 MG tablet Take 1 mg by mouth 2 (two) times a day. 02/20/2023 Active Active Problems Problem Noted Date Diagnosed Date Pannus, abdominal 03/13/2023 Skin laxity 03/13/2023 Family History Relation Status Comments Father Mother Social History Tobacco Use Types Packs/Day Years Used Date Smoking Tobacco: Never Assessed Education Answer Date Recorded Are you interested in more education? Not on estuardo e 03/08/2023 Are you concerned about learning? Not on file 03/08/2023 No 03/08/2023 No 03/08/2023 Digital Access Answer Date Recorded No 04/08/2023 No 04/08/2023 Reliable internet access at home? Not on file 04/08/2023 Device with a working camera? Not on file Sex and Gender Information Value Date Recorded Sex Assigned at Not on file Legal Sex Male 2:53 PM EDT Gender Identity Not on file Sexual Orientation Not on file Last Filed Vital Signs Vital Sign Reading Time Taken Comments Blood Pressure 130/72 03/11/2023 10:22 AM EDT Pulse 75 03/11/2023 10:22 AM EDT Temperature - - Respiratory Rate - - Oxygen Saturation - - Inhaled Oxygen Concentration - - Weight 73.9 kg (163 lb) 03/11/2023 10:22 AM EDT Height 163.8 cm (5' 4.5 ) 03/11/2023 10:22 AM ED T Body Mass Index 27.55 03/11/2023 10:22 AM EDT Plan of Treatment Health Maintenance Due Date Last Done Comments TSH LEVEL 1963 DEPRESSION SCREENING 1975 SMOKING Hx and SMOKELESS TOBACCO SCREENING 02/16/1976 HEPATITIS C SCREENING 1981 HIV ONE-TIME SCREENING (18-65 YEARS) 1981 SCREENING FOR DIABETES 1998 COLOGUARD 02/16/2008 COLONOSCOPY 02/16/2008 COLORECTAL CANCER SCREENING 02/16/2008 FIT TEST 02/16/2008 FOBT 02/16/2008 SIGMOIDOSCOPY 02/16/2008 VIRTUAL COLONOSCOPY 02/16/2008 ZOSTER VACCINES (2 of 2) 01/23/2022 022, 08/03/2021, 03/23/2018 Adult Td,Tdap Booster 04/14/2022 04/14/2012 PNEUMOCOCCAL VACCINES (50+ years) (3 of 3 - PCV20 or PCV21) 01/27/2025 01/28/2020, 06/12/2016 INFLUENZA VACCINE (#1) 2025 2, 08/03/2021, 07/19/2019, Additional history exists COVID-19 VACCINE ( season) 2025 02/26/2022, 09/30/2021, 02/19/2021, Additional history exists LIPID PANEL 01/17/2028 01/16/2023 RSV VACCINE (1 - 1-dose 75+ series) 2038 HEPATITIS A VACCINES Aged Out No long er eligible based on patient's age to complete this topic HIB VACCINES Aged Out No longer eligi ble based on patient's age to complete this topic MENINGOCOCCAL VACCINES (ACWY) Aged Out No longer eligible based on patient's age to complete this topic MENINGOCOCCAL VACCINES (B) Aged Out N o longer eligible based on patient's age to complete this topic Medical Devices Not on file Insurance MEDICARE PART A & B [facility] ONE CARE MEDICARE REPLACEMENT [place] [id number] MEDICARE PART A & B ONE CARE MEDICARE REPLACEMENT MEDICARE PART A & B [facility] CARE MEDICARE REPLACEMENT Member Subscriber Plan / Payer (Ef fective 2020-Present) Name:Doroteo Simmons Relation to Subscriber:Self Name:Doroteo Simmons Payer ID:[id number] (NAIC) Group ID:[id number] Type:Medicare Address: [address] [facility] MEDICARE PART A & B ONE CARE MEDICARE REPLACEMENT [place] [facility] MEDICARE PART A & B [facility] ONE CARE MEDICARE REPLACEMENT MEDICARE PART A & B [facility] ONE CARE MEDICARE REPLACEMENT Care Teams Cottrell Operator Relationship Specialty Start Date End Date Dionicio Sherman MD [address] [place] [id number] PCP - General Internal Medicine 02/13/23 Additional Source Comments The information contained in this document represents components of the legal health record. It is not the complete legal health record.[facility]
--- OUTSIDE RECORDS SUMMARY | 2025-10-11 10:29 | XMS_ITS | Encounter Summary ---
Author Organization [facility] Address [address] [place] [address] Care Team Providers Care Library Media Assistant Name Role Phone Dionicio Sherman MD Primary Care Provider [phone] Encounter Details Date Type Department Care Team (Late st Contact Info) Description 06/13/2025 Lab Requisition [facility] - Main Lab 299 [facility] [place] [phone] Farhat Hernandez PA 100 [facility] [address] [place] [phone] Testicular hypofunction Social History Tobacco Use Types Packs/Day Years [...] for your loved ones. For example, child development teacher or elderly care for an older [...] on file documented as of this encounter Plan of Treatment Upcoming Encounters Date Type Department Care Team (Late st Contact Info) Description 10/18/2025 1:30 PM EST Consult Orthopedic Surgery - [place] 160 175 [facility] 160 [place] [phone] Lis Walker MD 175 [facility] 160 [place] [address] 12/06/2025 8:30 AM EST Nutrition Bariatric Surgery - [place] 175 [facility] 120 [place] [phone] Magali Levy, RD [address] [phone] 01/17/2026 10:45 AM EDT Office Visit Bariatric Surgery - [place] [address] [facility] [address] [place] [phone] Lilli Escalona MD [address] [place] [phone] documented as of this encounter Procedures Procedure Name Priority Date/Time Associated Diagnosis Comments COMPLETE BLOOD COUNT Routine 06/13/2025 1:52 PM EDT Testicular hypofunction documented in this encounter Results * Complete blood count (06/13/2025 1:52 PM EDT) WBC 6.3 4.8 - 10.8 K/mcL LAB HEMETOLOGY METHOD [facility] RBC 5.30 4.50 - 5.50 M/mcL LAB HEMETOLOGY METHOD 06/13/2025 7[facility] Hemoglobin 16.1 13.5 - 17.5 g/dL LAB HEMETOLOGY METHOD 06/13/2025 7:08 PM [facility] Hematocrit 48.8 42.0 - 54.0 % LAB HEMETOLOGY METHOD 06/13/2025 7:[facility] MCV 92.1 79.0 - 98.0 FL LAB HEMETOLOGY METHOD 06/13/2025 7:08 PM [facility] MCH 30.4 27.0 - 32.0 pcg LAB HEMETOLOGY METHOD 06/13/2025 7:08 PM [facility] MCHC 33.0 32.0 - 37.0 g/dL LAB HEMETOLOGY METHOD 06/13/2025 7:08 PM [facility] RDW 13.2 11.0 - 15.0 % LAB HEMETOLOGY METHOD 06/13/2025 7:08 PM EDT [facility] Platelets 282 130 - 400 K/mcL LAB HEMETOLOGY METHOD 06/13/2025 7:08 PM EDT [facility] MPV 9.9 7.0 - 11.0 FL LAB HEMETOLOGY METHOD 06/13/2025 7:08 PM EDT [facility] NRBC 0.0 <1.0 % LAB HEMETOLOGY METHOD 06/13/2025 7:08 PM EDT [facility] NRBC Absolute 0.00 <0.10 K/mcL LAB HEMETOLOGY METHOD 06/13/2025 7:08 PM EDT [facility] Blood Venous blood specimen / Unknown 06/13/2025 1:52 PM EDT 06/13/2025 5:47 PM EDT Farhat CHENG LAB BLOOD ORDERABLES Final Result [facility] [address] [place] [address], documented in this encounter Visit Diagnoses Diagnosis Testicular hypofunction Other testicular hypofunction documented in this encounter Additional Health Concerns Assessment Noted Time PHQ-9 Depression Total Score: 0 01/12/20 25 10:07 AM EST documented as of this encounter Care Teams Library Media Assistant Relationship Specialty Start Date End Date Dionicio Sherman MD [address] [place] [address] PCP - General Internal Medicine 09/14/24 documented as of this encounter
--- OUTSIDE RECORDS SUMMARY | 2025-10-11 10:29 | XMS_ITS | Encounter Summary ---
Author Organization [facility] Address [address] [place] [address] Care Team Providers Care Commercial Lending Vice President Name Role Phone Dionicio Sherman MD Primary Care Provider [phone] Reason for Visit * Reason Onset Date Comments Med Refill 09/30/2025 Zepbound w/titra tion Encounter Details Date Type Department Care Team (Late st Contact Info) Description 09/30/2025 Telephone Bariatric Surgery - [place] 175 [facility] [address] [place] [address] Maral Villarreal PA [address] [place] [address] Social History Tobacco Use Types Packs/Day Years [...] for your loved ones. For example, child nutrition manager or elderly care for an older adult? [...] as of this encounter Progress Notes * Christy Silva - 09/30/2025 9:43 AM EST Patient did well on Zepbound 7.5 mgs and would like a refill with titration. If appropriate, please send script for Zepbound 10 mgs to their pharmacy. The patient does have a follow up in 12/06/2025 documented in this encounter Plan of Treatment Upcoming Encounters Date Type Department Care Team ([facility] st Contact Info) Description 10/18/2025 1:30 PM EST Consult Orthopedic Surgery - [place] [address] [phone] Lis Walker MD [address] [phone] 12/06/2025 8:30 AM EST Nutrition Bariatric Surgery - [address] [address] Magali Levy, KYAW [address] [address] 01/17/2026 10:45 AM EDT Office Visit Bariatric Surgery [address] [address] Lilli Escalona MD 230 [place] [phone] documented as of this encounter Visit Diagnoses Not on filedocumented in this encounter Additional Health Concerns Assessment Noted Time PHQ-9 Depression Total Score: 0 01/12/20 25 10:07 AM EST documented as of this encounter Care Teams Commercial Lending Vice President Relationship Specialty Start Date End Date Dionicio Sherman MD [address] [place] [address] PCP - General Internal Medicine 09/14/24 documented as of this encounter
--- OUTSIDE RECORDS SUMMARY | 2025-10-11 10:29 | XMS_ITS | Encounter Summary ---
Author Organization [facility] Address [address] [place] [address] Care Team Providers Care Investment Accountant Name Role Phone Dionicio Sherman MD Primary Care Provider [phone] Encounter Details Date Type Department Care Team (Late st Contact Info) Description 12/13/2024 Lab Requisition [facility] - Main Lab 299 [facility] [place] [phone] Olayinka Degroot, PROSPER 100 [facility] [address] [place] [phone] Testicular hypofunction Social History Tobacco Use Types [...] care for your loved ones. For example, children's ministry director or elderly care for an older adult? [...] 1:30 PM EST Consult Orthopedic Surgery - [place] 160 175 [facility] 160 [place] [phone] Lis Walker MD 175 [facility] 160 [place] [address] 12/06/2025 8:30 AM EST Nutrition Bariatric Surgery - [place] 175 [facility] 120 [place] [phone] Magali Levy, KYAW 175 [facility] 120 [place] [address] 01/17/2026 10:45 AM EDT Office Visit Bariatric Surgery - [place] [address] [facility] [address] [place] [phone] Lilli Escalona MD [address] [place] [phone] documented as of this encounter Procedures Procedure Name Priority Date/Time Associated Diagnosis Comments COMPLETE BLOOD COUNT Routine 12/13/2024 12:21 PM EST Testicular hypofunction documented in this encounter Results * Complete blood count (12/13/2024 12:21 PM EST) WBC 7.6 4.8 - 10.8 K/mcL LAB HEMETOLOGY METHOD 12/13/2024 2:24 PM [facility] RBC 5.50 4.50 - 5.50 M/mcL LAB HEMETOLOGY METHOD 12/13/2024 2:24 PM [facility] Hemoglobin 16.7 13.5 - 17.5 g/dL LAB HEMETOLOGY METHOD 12/13/2024 2:24 PM [facility] LAB Hematocrit 49.4 42.0 - 54.0 % LAB HEMETOLOGY METHOD 12/13/2024 2:24 PM [facility] LAB MCV 90.5 79.0 - 98.0 FL LAB HEMETOLOGY METHOD 12/13/2024 2:24 PM [facility] LAB MCH 30.6 27.0 - 32.0 pcg LAB HEMETOLOGY METHOD 12/13/2024 2:24 PM [facility] LAB MCHC 33.8 32.0 - 37.0 g/dL LAB HEMETOLOGY METHOD 12/13/2024 2:24 PM [facility] LAB RDW 13.6 11.0 - 15.0 % LAB HEMETOLOGY METHOD 12/13/2024 2:24 PM EST [facility] LAB Platelets 258 130 - 400 K/mcL LAB HEMETOLOGY METHOD 12/13/2024 2:24 PM EST [facility] LAB MPV 11.0 7.0 - 11.0 FL LAB HEMETOLOGY METHOD 12/13/2024 2:24 PM EST [facility] LAB NRBC 0.0 <1.0 % LAB HEMETOLOGY METHOD 12/13/2024 2:24 PM EST [facility] NRBC Absolute 0.00 <0.10 K/mcL LAB HEMETOLOGY METHOD 12/13/2024 2:24 PM EST [facility] Blood Venous blood specimen / Unknown 12/13/2024 12:21 PM EST 12/13/2024 1:56 PM EST us Olayinka Degroot PA LAB BLOOD ORDERABLES Final Res ult [facility] [address] [place] [address], documented in this encounter Visit Diagnoses Diagnosis Testicular hypofunction Other testicular hypofunction documented in this encounter Additional Health Concerns Assessment Noted Time PHQ-9 Depression Total Score: 0 10/04/20 24 11:55 AM EST documented as of this encounter Care Teams Investment Accountant Relationship Specialty Start Date End Date Dionicio Sherman MD [address] [place] [phone] PCP - General Internal Medicine 09/14/24 documented as of this encounter
== END 2025-10-11 10:04 | disposition home or self-care (01) ==
LOC: HO.HPHYS 09:36
PROVIDERS: PCP Internal Medicine; Visit Provider Physician Assistant
DX: M54.2 Cervicalgia (principal); M79.10 Myalgia, unspecified site
CPT/HCPCS: 20552; 99213

== ENCOUNTER → 2025-10-11 09:36 | Outpatient (BNVA) | payer OTHER, SELFPAY | PROVIDERS: PCP Internal Medicine; Visit Provider Physician Assistant | DX: G89.29 Other chronic pain (principal); M47.812 Spondylosis without myelopathy or radiculopathy, cervical region; M50.30 Other cervical disc degeneration, unspecified cervical region; M79.10 Myalgia, unspecified site; M25.512 Pain in left shoulder; F43.0 Acute stress reaction | CPT/HCPCS: 20552; 99212; J2003 ==

== ENCOUNTER 2025-11-08 13:33 | Outpatient (AMB) | payer OTHER, SELFPAY ==
[2025-11-08 13:35] VITALS: BMI 23.9
--- NOTE | 2025-11-08 13:35 | A.PHYSOV ---
Vital Signs 11/08/25 13:35 Height 5 ft 6 in Weight 148 lb BMI 23.9 Intake Visit Reasons: trigger point injection on Neck Feltmaker Required: No Allergies No Known Allergies Allergy (Verified 10/11/25 09:44) [facility] Surgical History (Updated 10/05/25 @ 09:02 by Radha Powers MA) H/O hernia repair Social History Alcohol intake: current Alcohol intake frequency: holidays/special occasions only Patient Tobacco Use Status: Never used Tobacco Physical Exam Vital Signs: BMI result Body Mass Index 23.9 Office Procedures AMB Trigger Point Inject - Phy Therapeutic Injection Details: Trigger point injection bilateral upper trapezius: Patient was educated about the risks, complications and benefits of trigger point injection. Risks and complications include infection, nerve damage, bleeding, collapsed lung. After discussing these risks complications and benefits the patient is eager to proceed. The patient's left upper trapezius muscle spasm was marked cleansed with an alcohol prep. 1 mL of 1% lidocaine was injected into the trigger point with needling. Patient tolerated the procedure well without immediate complication. The procedure was repeated on the right. 32454-Ktjllrs Point Injection 1 or 2 sites All charges added?: Procedure code (CPT) selection complete Office Meds lidocaine (PF) 20 mg/mL (2 %) injection solution Performing Provider: PROSPER Alves Performing Location: [facility] Administered by: PROSPER Alves on 11/08/25 16:52 Dose Route Admin Location Dispensed Lot Number Expiration Date [facility] Food Service Specialist 40 mg IM 5 mL [id number] [facility] Total Dispensed Waste 5 mL 60 % Assessment & Plan Assessment & Plan (1) Myalgia: Code(s): M79.10 - Myalgia, unspecified site Category: Medical Plan Mr. Simmons is a 60-year-old male seen in evaluation today for myofascial pain. Today consented to trigger point injection bilateral upper trapezius. He was given post-injection instructions, recommend: Moist heat compresses for 15 minutes up to 5 times daily. New appropriate water intake. If his neck pain does not markedly improved we will consider C6-7 ANA. Orders: Orders AMB Trigger Point Injection - Physiatry Today M79.10 - Myalgia, unspecified site Coding Level of Care Code Procedure Only Diagnoses Myalgia M79.10 CPT Codes Therapeutic Injection - Ther Injection 1: 13160-Tfmqucu Point Injection 1 or 2 sites ([id number])
--- OUTSIDE RECORDS SUMMARY | 2025-11-08 17:26 | XMS_ITS | Continuity of Care Document ---
Author Name Aaron Dubois Address [address] [place] [address] Organization Unknown Address [address] [place] [address] Medications No known medications Problems No known problems
--- OUTSIDE RECORDS SUMMARY | 2025-11-08 17:26 | XMS_ITS | Encounter Summary ---
Author Organization [facility] Address [address] [place] [address] Care Team Providers Care Pure Pak Machine Operator Name Role Phone Dionicio Sherman MD Primary Care Provider [phone] Encounter Details Date Type Department Care Team (Late st Contact Info) Description 12/13/2024 Lab Requisition [facility] - Main Lab [address] [facility] [place] [phone] Olayinka Degroot, PROSPER [facility] [employer] [facility] [address] [place] [phone] Testicular hypofunction Social History Tobacco Use Types [...] for your loved ones. For example, child health associate or elderly care for an older adult? [...] Information Value Date Recorded Sex Assigned at Male 10/11/2025 10:44 AM EST Legal Sex Male 5:28 PM EST Gender Identity Male 10/11/2025 10:44 AM EST Sexual Orientation Lesbian or Rosario 10/11/2025 10 :44 AM EST documented as of this encounter Plan of Treatment Upcoming Encounters Date Type Department Care Team (Late st Contact Info) Description 12/06/2025 8:30 AM EST Nutrition Bariatric Surgery - [place] [address] [address] Magali Levy, KYAW [address] [address] 01/17/2026 10:45 AM EDT Office Visit Bariatric Surgery - [address] [phone] Lilli Escalona MD [address] [place] [phone] documented as of this encounter Procedures Procedure Name Priority Date/Time Associated Diagnosis Comments COMPLETE BLOOD COUNT Routine 12/13/2024 12:21 PM EST Testicular hypofunction documented in this encounter Results * Complete blood count (12/13/2024 12:21 PM EST) WBC 7.6 4.8 - 10.8 K/mcL LAB HEMETOLOGY METHOD 12/13/2024 2:[address] [facility] RBC 5.50 4.50 - 5.50 M/mcL LAB HEMETOLOGY METHOD 12/13/2024 2:[address] [facility] Hemoglobin 16.7 13.5 - 17.5 g/dL LAB HEMETOLOGY METHOD 12/13/2024 2:[address] [facility] Hematocrit 49.4 42.0 - 54.0 % LAB HEMETOLOGY METHOD 12/13/2024 2:[address] [facility] MCV 90.5 79.0 - 98.0 FL LAB HEMETOLOGY METHOD 12/13/2024 2:[address] [facility] MCH 30.6 27.0 - 32.0 pcg LAB HEMETOLOGY METHOD 12/13/2024 2:[address] [facility] MCHC 33.8 32.0 - 37.0 g/dL LAB HEMETOLOGY METHOD 12/13/2024 2:[address] [facility] RDW 13.6 11.0 - 15.0 % LAB HEMETOLOGY METHOD 12/13/2024 2:[address] [facility] Platelets 258 130 - 400 K/mcL LAB HEMETOLOGY METHOD 12/13/2024 2:[address] [facility] MPV 11.0 7.0 - 11.0 FL LAB HEMETOLOGY METHOD 12/13/2024 2:24 PM EST [facility] NRBC 0.0 <1.0 % LAB HEMETOLOGY METHOD 12/13/2024 2:24 PM EST [facility] NRBC Absolute 0.00 <0.10 K/mcL LAB HEMETOLOGY METHOD 12/13/2024 2:24 PM EST [facility] Blood Venous blood specimen / Unknown 12/13/2024 12:21 PM EST 12/13/2024 1:56 PM EST us Olayinka R Zane PA LAB BLOOD ORDERABLES Final Res ult [facility] [address] [place] [address], documented in this encounter Visit Diagnoses Diagnosis Testicular hypofunction Other testicular hypofunction documented in this encounter Additional Health Concerns Assessment Noted Time PHQ-9 Depression Total Score: 0 10/04/20 24 11:55 AM EST documented as of this encounter Care Teams Pure Pak Machine Operator Relationship Specialty Start Date End Date Dionicio Sherman MD [address] [place] [address] PCP - General Internal Medicine 09/14/24 documented as of this encounter
--- OUTSIDE RECORDS SUMMARY | 2025-11-08 17:26 | XMS_ITS | Data Portability ---
Author Organization [place] [facility], Allergy Address [address] [place] [phone] Assessment Encounter Date Assessment Date Assessment LastModified by Organization Details LastModified Time 12/21/2024 12/21/2024 Patient with symptoms and history consistent with Eustachian tube dysfunction in the left ear. Today symptoms are minimal and the middle ear space is well-aerated without retraction. Type A tracing on tympanogram. No conductive component to the hearing loss. Reviewed pathophysiology of Eustachian tube dysfunction on diagram and patient/parent understands. Recommend trial of intranasal steroid spray; risks, rationale, and crossed-hand application technique reviewed and all questions were answered.As he has previously been failed by Flonase and Nasacort, will try budesonide spray. He will follow up with MD in 8-12 weeks if there is no improvement. He is free to cancel this appointment if his symptoms improve. Discussed he could also try a different oral antihistamine; tachyphylaxis reviewed and patient understands. Audiometric testing demonstrates bilateral neurosensory hearing loss without significant asymmetry. Speech recognition is good and amplification is not currently indicated. Recommend repeat audiometric testing in 1-2 years or with perceived change. [email or web address] Not available 12/21/2024 10:38:27 03/21/2025 03/21/2025 60-year-old male presents today for feeling of blockage in his left ear for almost 10 years. He has been evaluated multiple times in the office and is had allergy testing, tried jaw joint precautions, has had head imaging. Audiogram at his last visit reviewed showing borderline normal downsloping to mild sensorineural loss bilaterally with type A tymps. Middle ears are well aerated on exam. I did perform flexible nasopharyngoscopy to evaluate the ETD orifices which are normal. He does have a septal perforation which is clean and dry. I reassured him on his exam. We discussed that his symptoms are likely multifactorial with potential contributions from the eustachian tube, related to his allergies and potentially also to previous inhalant drug use, TMJ. Review of his chart reveals previous partial improvement with use of a mouthguard which I recommend that he reinstitute. [email or web address] Not available 03/23/2025 07:34:25 Plan of Treatment Reminders Order Date Submit Date Provider Last Modified By Organization Details Last Modified Time Details Appointments None recorded. Lab None recorded. Referral None recorded. Procedures None recorded. Surgeries None recorded. Imaging None recorded. Medication Orders budesonide 32 mcg/actuati on nasal spray 2024 025 [facility], [address] [place] [address], [address], 5 13:56:12 Patient TargetsNo targets recorded. Patient InstructionsNo instructions recorded. Reason for Referral None Reported. Results Created Date Observation Date Name Description Value Unit Range Abnormal Flag Note LastModifiedBy Organization Detail LastModifiedTime 12/21/19 25 audio gram No observ ation record ed. BARCODE Not Available 2024 11:06:00 Result Notes None recorded. Problems Name Problem SNOMED Code Status Onset Date Resolution Date Notes Provider Name and Address Organization Details Recorded Time Sensorine ural hearing loss of bilateral ears 196979764 Active 2015 Sensorine ural hearing loss, bilateral ; Note: Date Diagnosed : 02/07/2016 11:23 AM (H90.3) Not Available [facility] 4 02:31:18 Nasal congestio n 08306073 Active 2015 Nasal congestio n; Note: Date Diagnosed : 02/07/2016 11:23 AM (R09.81) Not Available [facility] 4 02:31:22 Tinnitus of left ear 49522291307 06 Active 2017 Tinnitus, left ear; Note: Date Diagnosed : 04/30/2018 4:33 PM (H93.12) Not Available [facility] 4 02:31:27 Disorder of nasal sinus 1868181 Active 2017 Perforati on of nasal septum NOS; Note: Date Diagnosed : 04/30/2018 3:51 PM (J34.89) Not Available [facility] 4 02:31:16 Disorder of the nose 54740737 Active 2017 Perforati on of nasal septum NOS; Note: Date Diagnosed : 04/30/2018 3:51 PM (J34.89) Not Available [facility] 4 02:31:17 History of tobacco use 45170470697 03 Active 2017 History of tobacco use; Note: Date Diagnosed : 04/30/2018 4:34 PM (V15.82) Not Available [facility] 4 02:31:28 Disorder of left Eustachia n tube 97931618959 84765 Active 2017 Other specified disorders of Eustachia n tube, left ear; Note: Date Diagnosed : 04/30/2018 3:51 PM (H69.82) Not Available [facility] 4 02:31:29 Bilateral temporoma ndibular joint pain 61421413871 956024 Active 2018 Arthralgi a of bilateral temporoma ndibular joint; Note: Date Diagnosed : 05/03/2019 4:34 PM (M26.623) Not Available [facility] 4 02:31:19 Abnormal auditory perceptio n 74578168 Active 2018 Other abnormal auditory perceptio ns, bilateral ; Note: Date Diagnosed : 05/03/2019 4:34 PM (H93.293) Not Available [facility] 4 02:31:35 Dysfuncti on of left eustachia n tube 14120281768 57560 Active 2024 RESHMA YUSUF MD [address] [facility],[place] [address], [place], [phone] , [place] - [facility] 5 07:29:59 Abnormal auditory perceptio n 05351574 Active 2024 RESHMA YUSUF MD [address] [place] [address],[place] [address], [place], [phone] , [place] - [facility] 09:53:42 Problem Notes None recorded. Procedures Surgical History Date Name Laterality Status Provider Name and Address Organization Details Recorded Time 025 Fiberoptic Nasopharyngoscopy completed RESHMA YUSUF MD [address] [facility],[address], [phone], [facility] 03/21/2025 09:53:29 025 Comp Audio with Tymps - 67347 & 04965 completed JING BANSAL [address] [facility],[address], [phone], [facility] 12/21/2024 09:20:12 Imaging Results None recorded. Procedure Notes None recorded. Medical Equipment None Reported. Allergies Allergen ID Allergen Name Allergen Category Reaction Reaction Severity Criticality Documentation Date Start Date Code Code System Note Provider Name and Address Organization Details Recorded Time 20782 naproxen medicatio n other Not available Not available 03/23/2024 7258 RxNorm Melonie antony [facility] 09:42:28 Medications Name Sig Start Date Stop Date Status Note LastModified by Organization Details LastModified Time budesonid e 32 mcg/actua tion nasal spray PLACE 2 SPRAYS IN EACH NOSTRIL EVERY MORNING active Not Available Not Available No t Available prednison e 10 mg tablet 12/18 completed Medicati on ID: [id number] D uration Value: 16 Brand Name: predniso ne Send Method: E-Prescr ibed Sub s Allowed: subs OK Medic ationGen ericName : predniso ne Not Available Not Available Not Available benztropi ne 0.5 mg tablet 03/21 completed Not Available Not Available Not Available atorvasta tin 10 mg tablet active Not Available Not Available Not Available doxepin 25 mg capsule 50 mg every day by oral route. 2024 active Not Available Not Available Not Avai lable naltrexon e 50 mg tablet active Not Available Not Available Not Available Elidel 1 % topical cream 04/30 completed Medicati on ID: [id number] D uration Value: 15 Reason: () Brand Name: Elidel S end Method: E-Prescr ibed Sub s Allowed: subs OK Medic ationGen ericName : Elidel Not Available Not Available Not Available prednison e 20 mg tablet 03/21 completed Not Available Not Available Not Available clonazepa m 0.5 mg tablet active Not Available Not Available Not Available sertralin e 100 mg tablet active Not Available Not Available Not Available clonazepa m 1 mg tablet 0.5 mg every day by oral route. 03/21 completed Not Available Not Available Not Available clobetaso l 0.05 % topical cream active Not Available Not Available Not Available sulfameth oxazole 800 mg-trimet hoprim 160 mg tablet 12/18 completed Medicati on ID: [id number] D uration Value: 10 Brand Name: sulfamet hoxazole -trimeth oprim Se nd Method: E-Prescr ibed Sub s Allowed: subs OK Medic ationGen ericName : sulfamet hoxazole -trimeth oprim Not Available Not Available Not Available cyprohept adine 4 mg tablet 12/18 completed Medicati on ID: [id number] D uration Value: 30 Brand Name: cyprohep tadine S end Method: E-Prescr ibed Sub s Allowed: subs OK Medic ationGen ericName : cyprohep tadine Not Available Not Available Not Available oxycodone -acetamin ophen 5 mg-325 mg tablet 04/30 completed Medicati on ID: [id number] D uration Value: 5 Reason: () Brand Name: oxycodon e-acetam inophen Send Method: E-Prescr ibed Sub s Allowed: subs OK Medic ationGen ericName : oxycodon e-acetam inophen Not Available Not Available Not Available baclofen 10 mg tablet 03/21 completed Not Available Not Available Not Available levothyro xine 50 mcg tablet active Not Available Not Available Not Available simvastat in 20 mg tablet 12/18 completed Medicati on ID: [id number] D uration Value: 30 Brand Name: simvasta tin Send Method: E-Prescr ibed Sub s Allowed: subs OK Medic ationGen ericName : simvasta tin Not Available Not Available Not Available lisinopri l 10 mg tablet 12/18 completed Medicati on ID: [id number] D uration Value: 30 Brand Name: lisinopr il Send Method: E-Prescr ibed Sub s Allowed: subs OK Medic ationGen ericName : lisinopr il Not Available Not Available Not Available gabapenti n 300 mg capsule active Not Available Not Available Not Available hydrochlo rothiazid e 25 mg tablet 12/18 completed Medicati on ID: [id number] D uration Value: 30 Brand Name: hydrochl orothiaz shanti Send Method: E-Prescr ibed Sub s Allowed: subs OK Medic ationGen ericName : hydrochl orothiaz shanti Not Available Not Available Not Available paroxetin e 40 mg tablet 12/18 completed Medicati on ID: [id number] D uration Value: 30 Brand Name: paroxeti ne HCl Send Method: E-Prescr ibed Sub s Allowed: subs OK Medic ationGen ericName : paroxeti ne HCl Not Available Not Available Not Available hydrocort isone 2.5 % topical ointment 04/30 completed Medicati on ID: [id number] D uration Value: 7 Reason: () Brand Name: hydrocor tisone S end Method: E-Prescr ibed Sub s Allowed: subs OK Medic ationGen ericName : hydrocor tisone Not Available Not Available Not Available hydroxyzi ne HCl 10 mg tablet active Not Available Not Available No t Available topiramat e 100 mg tablet 03/21 completed Not Available Not Available Not Available aripipraz ole 5 mg tablet 03/21 completed Not Available Not Available Not Available bupropion HCl XL 300 mg 24 hr tablet, extended release active Not Available Not Available Not Available Cialis 5 mg tablet 04/30 completed Medicati on ID: [id number] D uration Value: 4 Reason: () Brand Name: Cialis S end Method: E-Prescr ibed Sub s Allowed: subs OK Medic ationGen ericName : Cialis Not Available Not Available Not Available topiramat e 50 mg tablet 03/21 completed Not Available Not Available Not Available calcipotr iene-beta methasone 0.005 %-0.064 % topical ointment 04/30 completed Medicati on ID: [id number] D uration Value: 30 Reason: () Brand Name: calcipot riene-be tamethas one Send Method: E-Prescr ibed Sub s Allowed: subs OK Medic ationGen ericName : calcipot riene-be tamethas one Not Available Not Available Not Available melatonin 5 mg tablet active Not Available Not Available Not Available cholecalc iferol (vitamin D3) 50 mcg (2,000 unit) tablet active Not Available Not Available Not Available testoster one 20.25 mg/1.25 gram per pump act.(1.62 %) transderm al gel active Not Available Not Available Not Available Flonase Allergy Relief 50 mcg/actua tion nasal spray,neda pension 2 puff into both nostrils 12/18 completed Medicati on ID: [id number] P rescribe d By Name: Aleida Solano rd, nd Name: Flonase Allergy Relief S end Method: E-Prescr ibed Sub s Allowed: subs OK Medic ationGen ericName : Flonase Allergy Relief Not Available Not Available Not Available Vitals Date Recorded Body height Body mass index (BMI) Body weight Provider Name and Address Organization Details Last Updated DateTime 12/21/2024 167.64 cm 26.1 kg/m2 20811.96 g Melonie Terry [place] [facility] 12/21/2024 09:42:22 Date Recorded Body height Body mass index (BMI) Body weight Provider Name and Address Organization Details Last Updated DateTime 03/21/2025 167.64 cm 23.4 kg/m2 42174.89 g Lidia Venegas [place] [facility] 03/21/2025 09:38:44 Social History None recorded. Functional Status None recorded. Mental Status None recorded. Family History Nothing Reported. Medical History Condition Response Allergies/Hayfever Y Heart Problems N Anxiety Y Tonsil Infections N Emphysema N Migraines N Thyroid Problems Y Glaucoma N Developmental Delay N Depression Y COPD N Nasal or Sinus Problems Y Anemia N Immune System Disorder N Anesthesia Complications N Heart Attack ([place]) N Other Skin Condition N Diabetes N Rhinitis Y Bleeding Disorder N Food Allergy N Hearing Loss Y Arthritis Y Hyperlipidemia Y Cancer N Stroke N Dementia N Nasal polyps N Asthma N Sleep Disorder Y High Cholesterol Y GERD/Reflux N Liver Disease N Headaches N Fibromyalgia N Hypertension Y Speech Delay N Kidney Disease N Past Encounters Encounter ID Performer Location Encounter Start Date Encounter Closed Date Diagnosis/Indication Diagnosis SNOMED-CT Code Diagnosis ICD10 Code Diagnosis IMO Codes Diagnosis Note [id number] NEVAEH CLEMENT PA-C [facility] [address] [address] 12/21/2024 09:06:49 12/21/2024 10:04:20 Sensorineural hearing loss of bilateral ears 955756990 H90.3 Audiologic al evaluation results: Normal sloping to mild sensorineu ral hearing loss with excellent word recognitio n, bilaterall y. Tympanomet ry:Right Ear:Type ALeft Ear:Type A Dysfunctio n of left eustachian tube 0344069237 326519 H69.92 [id number] RESHMA YUSUF MD [facility] [address] [phone] 03/21/2025 09:31:37 03/21/2025 09:53:12 Abnormal auditory perception 11020933 H93.292 [id number] Dysfunctio n of left eustachian tube 4732029981 075844 H69.92 99882277 Health Concerns Section Related Observation LastModified by Organization Detai ls LastModified Time None Recorded Concern Status LastModified by Organization Details LastModified Time None Recorded Advance Directives Directive None Recorded Payers Insurance Date Sequence Insurance Name Policy Number Policy Cunningham Covered Member ID Cunningham Member ID Guarantor Name 01/24/2025 1 [facility] (MEDICARE REPLACEMENT/ADV ANTAGE - HMO) Doroteo Simmons [id number] Doroteo Simmons 03/21/2025 1 [facility] - DOS ON OR AFTER 2023 - [facility] (MEDICARE REPLACEMENT/ADV ANTAGE - HMO) Doroteo Simmons [id number] Doroteo Simmons Notes Date Note Type Note Provider Name and Address Organization Details Recorded Time 12/21/2024 text/html ROS as noted in the HPI 59 year old male presents for evaluation of the ears and hearing. The left ear has felt blocked since 2017, sometimes worse than others. Both a pressure sensation he can feel and a muffled hearing. Both improve briefly with autoinsufflation. Diagnosed with Eustachian tube dysfunction. Used Nasacort for a while but no help so he discontinued it. Had a week long prednisone burst once when he was told there was fluid behind the ear drum, no help. Underwent subcutaneous immunotherapy but did not help with this symptom. It definitely helps with his nasal allergy symptoms. He uses Claritin every day. There is no history of recurrent otitis and no otologic surgeries. There is no otalgia and no otorrhea, and he has no concerns about his hearing overall. Nevaeh antony [place] - [facility] 12/21/2024 10:38:43 03/21/2025 text/html Symptoms since 2017 per report though review of his chart reports symptoms dating back to 2015. Of note on chart review also he had a CT head in 2016 which was unremarkable and he was hospitalized in 2018 after a fall from a roof. He was previously diagnosed with TMJ and reported in 2019 and improvement in his symptoms after using the mouthguard. No headaches. Sometimes clenches teeth. 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
--- OUTSIDE RECORDS SUMMARY | 2025-11-08 17:26 | XMS_ITS | Clinical Summary ---
Author Organization [facility] Address [address] [address] Phone Care Team Providers Care Vice President Of Talent Acquisition Name Role Phone Dionicio Sherman MD Primary [...] file Insurance MEDICARE PART A & B [facility] ONE CARE MEDICARE REPLACEMENT [employer] [place] [id number] MEDICARE PART A & B ONE CARE MEDICARE REPLACEMENT MEDICARE PART A & B [facility] CARE MEDICARE REPLACEMENT Member Subscriber Plan / Payer (Ef fective 2020-Present) Name:Doroteo Simmons Relation to Subscriber:Self Name:Doroteo Simmons Payer ID:[id number] (NAIC) Group ID:[id number] Type:Medicare Address: [address] [facility] MEDICARE PART A & B ONE CARE MEDICARE REPLACEMENT [employer] [facility] MEDICARE PART A & B [facility] ONE CARE MEDICARE REPLACEMENT MEDICARE PART A & B [facility] ONE CARE MEDICARE REPLACEMENT Care Teams Vice President Of Talent Acquisition Relationship Specialty Start Date End Date Dionicio Sherman MD [address] [place] [id number] PCP - General Internal Medicine 02/13/23 Additional Source Comments The information contained in this document represents components of the legal health record. It is not the complete legal health record.[facility]
--- OUTSIDE RECORDS SUMMARY | 2025-11-08 17:26 | XMS_ITS | Encounter Summary ---
Author Organization [facility] Address [address] [place] [address] Care Team Providers Care Call Center Team Leader Name Role Phone Dionicio Sherman MD Primary Care Provider [phone] Encounter Details Date Type Department Care Team (Late st Contact Info) Description 06/13/2025 Lab Requisition [facility] - Main Lab [address] [facility] [place] [phone] Farhat Hernandez PA [address] [facility] [address] [place] [phone] Testicular hypofunction Social History Tobacco Use Types [...] for your loved ones. For example, child support agent or elderly care for an older adult? [...] 8:30 AM EST Nutrition Bariatric Surgery - [place] [address] [phone] Magali Levy, [place] [address] [phone] 01/17/2026 10:45 AM EDT Office Visit Bariatric Surgery - [address] [phone] Lilli Escalona MD [address] [place] [phone] documented as of this encounter Procedures Procedure Name Priority Date/Time Associated Diagnosis Comments COMPLETE BLOOD COUNT Routine 06/13/2025 1:52 PM EDT Testicular hypofunction documented in this encounter Results * Complete blood count (06/13/2025 1:52 PM EDT) WBC 6.3 4.8 - 10.8 K/mcL LAB HEMETOLOGY METHOD 06/13/2025 7:08 PM [facility] RBC 5.30 4.50 - 5.50 M/mcL LAB HEMETOLOGY METHOD 06/13/2025 7:08 PM [facility] Hemoglobin 16.1 13.5 - 17.5 g/dL LAB HEMETOLOGY METHOD 06/13/2025 7:08 PM [facility] Hematocrit 48.8 42.0 - 54.0 % LAB HEMETOLOGY METHOD 06/13/2025 7:08 PM [facility] MCV 92.1 79.0 - 98.0 FL LAB HEMETOLOGY METHOD 06/13/2025 7:08 PM [facility] MCH 30.4 27.0 - 32.0 pcg LAB HEMETOLOGY METHOD 06/13/2025 7:08 PM [facility] MCHC 33.0 32.0 - 37.0 g/dL LAB HEMETOLOGY METHOD 06/13/2025 7:08 PM [facility] RDW 13.2 11.0 - 15.0 % LAB HEMETOLOGY METHOD 06/13/2025 7:08 PM [facility] Platelets 282 130 - 400 K/mcL LAB HEMETOLOGY METHOD 06/13/2025 7:08 PM EDT [facility] MPV 9.9 7.0 - 11.0 FL LAB HEMETOLOGY METHOD 06/13/2025 7:08 PM EDT [facility] NRBC 0.0 <1.0 % LAB HEMETOLOGY METHOD 06/13/2025 7:08 PM EDT [facility] NRBC Absolute 0.00 <0.10 K/mcL LAB HEMETOLOGY METHOD 06/13/2025 7:08 PM EDT [facility] Blood Venous blood specimen / Unknown 06/13/2025 1:52 PM EDT 06/13/2025 5:47 PM EDT Farhat CHENG LAB BLOOD ORDERABLES Final Result [facility] [address] [place] [address], documented in this encounter Visit Diagnoses Diagnosis Testicular hypofunction Other testicular hypofunction documented in this encounter Additional Health Concerns Assessment Noted Time PHQ-9 Depression Total Score: 0 01/12/20 25 10:07 AM EST documented as of this encounter Care Teams Call Center Team Leader Relationship Specialty Start Date End Date Dionicio Sherman MD [address] [place] [id number] PCP - General Internal Medicine 09/14/24 documented as of this encounter
--- OUTSIDE RECORDS SUMMARY | 2025-11-08 17:26 | XMS_ITS | Clinical Summary ---
Author Organization [address] [facility] Address [address] [place] [address] Phone Care Team Providers Care Cartography Professor Name Role Phone Dionicio Sherman MD Primary Care Provider [phone] Allergies No known active allergies Medications acetaminophen (TYLENOL) 500 mg tablet Take 2 Tablets by mouth every 8 hours for 30 days. 06/04/20 21 Active MELATONIN ORAL Take by mouth. Active testosterone 20.25 mg/1.25 gram (1.62 %) gel in metered-dose pump APPLY 2 PUMPS DAILY INSTRUCTED TO A DRY UPPER BODY AREA 01/11/20 21 Active doxepin (SINEquan) 50 mg capsule Take [...] (ONE) TIME EACH DAY. 90 tablet 09/06/20 25 Active cholecalcifero l (VITAMIN D-3) 50 mcg (2,000 unit) tablet Take 1 tablet (2,000 Units total) by mouth 1 (one) time each day. 90 tablet 1 09/30/20 25 Active omeprazole (PriLOSEC) [address] capsule 09/02/20 25 Active diclofenac (VOLTAREN) 50 mg EC tablet Take 1 tablet (50 mg total) by mouth 2 (two) times a day. Do not crush, chew, or split. 28 tablet 2 10/04/20 25 Active clobetasoL (TEMOVATE) 0.05 % cream Apply topically 2 (two) times a day. 30 g 2 10/04/20 25 026 Active hydrOXYzine HCL (ATARAX) 25 mg tablet TAKE 1 TABLET BY MOUTH THREE TIMES DAILY 30 tablet 1 10/11/20 25 Active hydrOXYzine HCL (ATARAX) 25 mg tabletIndicati ons:Anxiety Take 1 tablet (25 mg total) by mouth 3 (three) times a day. 21 each 10/19/20 25 Active tirzepatide, weight loss, (Zepbound) 12.5 mg/0.5 mL injection Inject 0.5 mL (12.5 mg total) under the skin every 7 (seven) days for 28 days. 2 mL 11/02/20 25 026 Active hydrOXYzine HCL (ATARAX) 25 mg tablet Take 1 tablet (25 mg total) by mouth 3 (three) times a day. 30 each 2 03/08/20 25 025 Discontinued tirzepatide, weight loss, (Zepbound) 10 mg/0.5 mL injection Inject 0.5 mL (10 mg total) under the skin every 7 (seven) days for 28 days. 2 mL 09/30/20 25 025 Discontinued Zepbound 10 mg/0.5 mL injection INJECT 0.5 ML (10 MG TOTAL) UNDER THE SKIN EVERY 7 (SEVEN) DAYS FOR 28 DAYS. 2 mL 11/02/20 25 025 Discontinued(Do se adjustment) Active Problems Problem Noted Date Diagnosed Date Limitation due to disability 09/06/202506/2018 Overview (10/27/2025): Images from the original note were not included. See 09/06/25 [place] msg where pt provides disability award letter through [employer], below is partial copy of it. Reason is unknown Depression 08/30/2024 Overview (08/30/2024): used to take effexor, clonazepam. no longer taking Incisional hernia 08/30/2024 Overweight (BMI 25.0-29.9) 01/22/2022 Recurrent ventral hernia 01/15/2021 Chronic abdominal pain 04/13/2020 Suicidal overdose 07/29/2019 Overview (08/30/2024): [facility] 07/27/19-- 6mg klonopin, 100mg [...] Encounters Date Type Department Care Team Description 10/31/2025 Telephone Bariatric Surgery - [address] [place] [address] Lilli Escalona MD 10/19/2025 4:35 PM EST - 10/19/2025 8:55 PM EST Emergency [facility] Emergency [address] [place] [phone] Chrissy Bhagat MD Anxiety (Primary Dx) Discharge Disposition: Home or Self Care 10/18/2025 1:30 PM EST Consult Orthopedic Surgery [facility] [address] 175 [facility] [address] [place] [phone] Lis Walker MD Cervical radiculopathy (Primary Dx); Degenerative disc disease, cervical; Left shoulder pain 09/30/2025 Telephone Bariatric Surgery [facility] [address] [phone] Maral Villarreal PA 09/14/2025 11:10 AM EST - 09/14/2025 11:59 PM EST Hospital Encounter Radiology Department - [address] [phone] Cervicalgia; Radiculopathy, cervical region; Myalgia, other site Discharge Disposition: Home or Self Care 09/08/2025 11:00 AM EDT Office Visit [facility] - [facility] [address] [place], [place] [phone] Dionicio Sherman MD Chronic left shoulder pain (Primary Dx); Immunization due; Mild episode of recurrent major depressive disorder (CMS/HCC V24); Insomnia, unspecified type 09/06/2025 Telephone Internal Medicine - [facility] [address] [place], [place] [phone] Dionicio Sherman MD 09/06/2025 Telephone Internal Medicine - [facility] [address] [facility] [place], [place] [phone] Dionicio Sherman MD 08/31/2025 Telephone Bariatric Surgery [facility] [address] [phone] Lilli Escalona MD 08/18/2025 Telephone Internal Medicine - [facility] [address] [facility] [place], [place] [phone] Dionicio Sherman MD from Last 3 Months Immunizations Immunization Administration Dates Next Due Influenza Quadravalent, 0.5m l (Fluzone High-dose) 65yo and older 09/21/2023,08/16/2018 Influenza trivalent, 0.5mL, preservative free (Fluarix; FluLaval; Fluzone) ages 6mo and older (Afluria) 3 years and older 07/23/2022,08/03/2021,07/19/2019,10/07,06/12/2016,07/18/2015,08/23/2014 Influenza trivalent, MDCK, 0 .5mL, preservative free (Flucelvax) 6mo and older 09/08/2025 Moderna Covid-19 Bivalent, O riginal + Ba.1 (Non-US Tradename Spikevax Bivalent) 07/23/2022 Bioenvision SARS-CoV-2 COVID-19, mRNA, LNP-S, preservative free 02/26/2022,09/30/2021,02/19/2021,01/29 [...] History Surgery Date Site/Laterality Comments APPENDECTOMY PROCEDURE: WI APPENDEC INDICATED PURPOSE OTH MAJOR PX NOT SPX COLONOSCOPY 03/02/2015 PROCEDURE: HISTORICAL COLONOSCOPY; COMMENT: incomplete to 35 cm. OTHER SURGICAL HISTORY PROCEDURE: WI LAPS COLECTOMY PRTL W/END CLST & CLSR DSTL SGM HERNIA REPAIR PROCEDURE: HISTORICAL HERNIA REPAIR/ING OTHER SURGICAL HISTORY PROCEDURE: WI COLECTOMY PARTIAL W/ANASTOMOSIS Medical History Medical History Date Comments Hypertension 12/17/2011 DX:Hypertension Hyperlipidemia 12/17/2011 DX:Hyperlipidemi a Depression DX:Depression; C OMMENT: used to take effexor, clonazepam. no longer taking H/O colonoscopy 03/02/2015 DX:H/O colonosco py; COMMENT: Difficult sigmoid colon at incomplete CN 03/02/2015. Consider colonoscopy at the hospital with anesthesia 2019. 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 For example, child day care provider or elderly care for an older adult? [...] or Rosario 10/11/2025 10 :44 AM EST Last Filed Vital Signs Vital Sign Reading Time Taken Comments Blood Pressure 126/87 10/19/2025 6:28 PM EST Pulse 88 10/19/2025 6:28 PM EST Temperature 36.7 C (98.1 F) 10/19/2025 12:17 PM EST Respiratory Rate 18 10/19/2025 6:28 PM EST Oxygen Saturation 99% 10/19/2025 6:28 PM EST Inhaled Oxygen Concentration - - Weight 67.1 kg (148 lb) 10/19/2025 12:17 PM EST Height 167.6 cm (5' 6 ) 10/19/2025 12:17 PM EST Body Mass Index 23.89 10/19/2025 12:17 PM EST Plan of Treatment Upcoming Encounters Date Type Department Care Team (Late st Contact Info) Description 12/06/2025 8:30 AM EST Nutrition Bariatric Surgery - [place] [address] [phone] Magali Levy, [place] [address] [phone] 01/17/2026 10:45 AM EDT Office Visit Bariatric Surgery [facility] [address] [phone] Lilli Escalona MD [address] [place] [phone] Health Maintenance Due Date Last Done Comments Non-Opioid Controlled Substance Agreement 1965 Zoster Vaccines (2 of 2) 01/23/2022 022, 08/03/2021, 03/23/2018 Medicare Annual Wellness Visit 10/19/2022 Pneumococcal Vaccine: 50+ Years (3 of 3 - PCV20 or PCV21) 01/27/2025 01/28/2020, 06/12/2016 COVID-19 Vaccine ( season) 2025 08/05/2023, 07/23/2022, 02/26/2022, Additional history exists Social Influencers of Health Screening 10/04/2025 10/04/2024 Drug Screen 10/19/2026 10/19/2025 Hypertension/CHF/CAD Annual BMP Blood Test 10/19/2026 10/19/2025, 04/20/2025, 01/07/2025 Colorectal Cancer Screening: Colonoscopy 12/14/2029 12/14/2019, 03/02/2015 Cholesterol Screening (Lipid Panel) 01/07/2030 01/07/2025, 04/09/2024, 04/09/2024 DTaP,Tdap,and Td Vaccines (3 - Td or Tdap) 12/27/2032 12/27/2022, 04/14/2012 RSV Immunization Adult Patients (1 - 1-dose 75+ series) 2038 Hepatitis C Screening Completed 06/03/2018 HIV Screening Completed 01/07/2025, 02/25/2017 Depression Screening Completed 01/11/2025, 04/09/20 Influenza Vaccine Completed 09/08/2025, , 08/05/2023, Additional [...] Procedure Name Priority Date/Time Associated Diagnosis Comments PHENYLCYCLIDINE SCREEN URINE WITH REFLEX QUANTITATION STAT 10/19/2025 5:13 PM EST BUPRENORPHINE SCREEN, URINE STAT 10/19/2025 5:13 PM EST METHADONE SCREEN, URINE STAT 10/19/2025 5:13 PM EST DRUG ABUSE SCREEN 8A PANEL, URINE STAT 10/19/2025 5:13 PM EST CBC WITH AUTO DIFFERENTIAL STAT 10/19/2025 12:23 PM EST ACETAMINOPHEN LEVEL STAT 10/19/2025 1 2:23 PM EST SALICYLATE LEVEL STAT 10/19/2025 12:2 3 PM EST ETHANOL STAT 10/19/2025 12:23 PM EST CBC AND DIFFERENTIAL STAT 10/19/2025 12:23 PM EST COMPREHENSIVE METABOLIC PANEL STAT 10/19/2025 12:23 PM EST XR SHOULDER 2+ VIEWS LEFT Routine 10/18/2025 1:18 PM EST Left shoulder pain MR CERVICAL SPINE WO CONTRAST Routine 09/14/2025 12:03 PM EST Cervicalgia Radiculopathy, cervical region Myalgia, other site HIV 1, 2 ANTIBODY, P24 ANTIGEN WITH REFLEX TO DIFFERENTIATION Routine 01/07/2025 9:11 AM EST STD exposure LIPID PANEL WITH REFLEX TO DIRECT LDL Routine 01/07/2025 9:11 AM EST Screening for hyperlipidemia HM DEPRESSION SCREENING Routine 04/09/2024 COLONOSCOPY Routine 12/14/2019 HEPATITIS C SCREENING Routine 06/03/2018 from Last 3 Months or Most Recently Relevant to Health Maintenance Results * Phencyclidine screen urine with reflex confirmation (10/19/2025 5:13 PM EST) PCP Scrn, Ur Negative Negative 10/19/2025 6:46 PM EST [facility] Comment: Assay cutoff 25 ng/mL Semi-quantitative assay for screening purposes only. Unconfirmed screening result should not be used for non-medical purposes. *POSITIVE RESULTS ARE AUTOMATICALLY SENT FOR ALTERNATE METHOD CONFIRMATION* Urine Urine specimen obtained by clean catch procedure / Unknown Non-blood Collection / Unknown 10/19/2025 5:13 PM EST 10/19/2025 5:21 PM EST us Chrissy Bhagat MD LAB URINE ORDERABLES Final Res ult [facility] [address] [place] [address], * (ABNORMAL) Drug abuse screen 8a panel, urine (10/19/2025 5:13 PM EST) Amphetamine Screen, Ur Negative Negative 10/19/2025 6:46 PM EST [facility] Comment:Certain OTC medicati ons containing ephedrine, phenylephrine, pseudoephedrine and phenylpropanolamine can cause false positive results. Barbiturate Screen, Ur Negative Negative 10/19/2025 6:46 PM EST [facility] Benzodiazepine Screen, Ur Negative Negative 10/19/2025 6:46 PM EST [facility] Cocaine Screen, Ur Positive(A ) Negative 10/19/2025 6:46 PM EST [facility] Opiate Screen, Ur Negative Negative 12/10/2 025 6:46 PM EST [facility] Cannabinoid (THC) Screen, Ur Negative Negative 10/19/2025 6:46 PM EST [facility] Comment:Specimens from patie nts taking pantoprazole sodium (Protonix) have been shown to produce false positive results. Oxycodone Screen, Ur Negative Negative 10/10 6:46 PM EST [facility] Fentanyl, Ur Negative Negative 10/19/2025 6:46 PM EST [facility] Urine Urine specimen obtained by clean catch procedure / Unknown Non-blood Collection / Unknown 10/19/2025 5:13 PM EST 10/19/2025 5:21 PM EST [facility] - 10/19/2025 6:46 PM EST Assay cutoffs: Amphetamines 1000 ng/mL Barbiturates 200 ng/mL Benzodiazepines 200 ng/mL Cocaine 300 ng/mL Fentanyl 1 ng/mL Opiates 300 ng/mL Oxycodone 100 ng/mL THC 50 ng/mL Semi-quantitative assay for screening purposes only. Unconfirmed screening result should not be used for non-medical purposes. *ALTERNATE METHOD CONFIRMATION DONE UPON REQUEST ONLY* Chrissy Bhagat MD LAB URINE ORDERABLES Final Res ult [facility] [address] [place] [address], * Buprenorphine screen, urine (10/19/2025 5:13 PM EST) Buprenorphine Screen Urine Negative Negative 10/19/2025 6:46 PM EST [facility] Urine Urine specimen obtained by clean catch procedure / Unknown Non-blood Collection / Unknown 10/19/2025 5:13 PM EST 10/19/2025 5:21 PM EST [facility] - 10/19/2025 6:46 PM EST Assay cutoff 5 ng/mL Semi-quantitative assay for screening purposes only. Unconfirmed screening result should not be used for non-medical purposes. *ALTERNATE METHOD CONFIRMATION DONE UPON REQUEST ONLY* Chrissy Bhagat MD LAB URINE ORDERABLES Final Res ult Performing Organization Address [facility]/ZIP Co de Phone Number [facility] [address] [place] [address], [place] [phone] * Methadone, urine (10/19/2025 5:13 PM EST) Pathologist [facility] Methadone Screen, Urine Negative Negative 10/19/2025 6:46 PM EST [facility] Comment: Assay cutoff 300 ng/mL Semi-quantitative assay for screening purposes only. Unconfirmed screening result should not be used for non-medical purposes. *ALTERNATE METHOD CONFIRMATION DONE UPON REQUEST ONLY* Urine Urine specimen obtained by clean catch procedure / Unknown Non-blood Collection / Unknown 10/19/2025 5:13 PM EST 10/19/2025 5:21 PM EST Chrissy Bhagat MD LAB URINE ORDERABLES Final Res ult Performing Organization Address [facility]/ZIP Co de Phone Number [facility] [address] [place] [address], [place] [phone] * CBC auto differential (10/19/2025 12:23 PM EST) [facility] WBC 6.3 4.8 - 10.8 K/[facility] HEMETOLOGY METHOD 10/19/2025 1:25 PM EST [facility] RBC 5.50 4.50 - 5.50 M/[facility] LAB HEMETOLOGY METHOD 10/19/2025 1:25 PM EST [facility] Hemoglobin 16.8 13.5 - 17.5 g/dL LAB HEMETOLOGY METHOD 10/19/2025 1:25 PM EST [facility] Hematocrit 49.9 42.0 - 54.0 % LAB HEMETOLOGY METHOD 10/19/2025 1:25 PM [facility] MCV 91.1 79.0 - 98.0 FL LAB HEMETOLOGY METHOD 10/19/2025 1:25 PM [facility] MCH 30.7 27.0 - 32.0 pcg LAB HEMETOLOGY METHOD 10/19/2025 1:25 PM [facility] MCHC 33.7 32.0 - 37.0 g/dL LAB HEMETOLOGY METHOD 10/19/2025 1:25 PM [facility] RDW 13.6 11.0 - 15.0 % LAB HEMETOLOGY METHOD 10/19/2025 1:25 PM [facility] Platelets 313 130 - 400 K/mcL LAB HEMETOLOGY METHOD 10/19/2025 1:25 PM [facility] MPV 9.9 7.0 - 11.0 FL LAB HEMETOLOGY METHOD 10/19/2025 1:25 PM [facility] NRBC 0.0 <1.0 % LAB HEMETOLOGY METHOD 10/19/2025 1:25 PM [facility] NRBC Absolute 0.00 <0.10 K/mcL LAB HEMETOLOGY METHOD 10/19/2025 1:25 PM [facility] Neutrophils Relative 69.1 % LAB HEMETOLOGY METHOD 10/19/2025 1:25 PM [facility] Lymphocytes Relative 22.3 % LAB HEMETOLOGY METHOD 10/19/2025 1:25 PM [facility] Monocytes Relative 6.2 % LAB HEMETOLOGY METHOD 10/19/2025 1:25 PM [facility] Eosinophils Relative 1.3 % LAB HEMETOLOGY METHOD 10/19/2025 1:25 PM [facility] Basophils Relative 0.6 % LAB HEMETOLOGY METHOD 10/19/2025 1:25 PM EST [facility] Immature Granulocytes Relative 0.5 % LAB HEMETOLOGY METHOD 10/19/2025 1:25 PM EST [facility] Neutrophils Absolute 4.38 1.50 - 7.00 K/[facility] HEMETOLOGY METHOD 10/19/2025 1:25 PM EST [facility] Lymphocytes Absolute 1.41 1.00 - 5.00 K/mcL LAB HEMETOLOGY METHOD 10/19/2025 1:25 PM EST [facility] Monocytes Absolute 0.39 0.20 - 1.00 K/mcL LAB HEMETOLOGY METHOD 10/19/2025 1:25 PM EST [facility] Eosinophils Absolute 0.08 0.00 - 0.50 K/[facility] HEMETOLOGY METHOD 10/19/2025 1:25 PM EST [facility] Basophils Absolute 0.04 0.00 - 0.20 K/mcL LAB HEMETOLOGY METHOD 10/19/2025 1:25 PM EST [facility] Immature Granulocytes Absolute 0.03 0.00 - 0.03 K/mcL LAB HEMETOLOGY METHOD 10/19/2025 1:25 PM EST [facility] Blood Venous blood specimen / Unknown Venipuncture / Unknown 10/19/2025 12:23 PM EST 10/19/2025 1:16 PM EST us Chrissy Bhagat MD LAB BLOOD ORDERABLES Final Res ult [facility] [address] [place] [address], * Ethanol (10/19/2025 12:23 PM EST) Ethanol Level <3 0 - 10 mg/dL 10/19/2025 2:09 PM EST [facility] Blood Venous blood specimen / Unknown Venipuncture / Unknown 10/19/2025 12:23 PM EST 10/19/2025 1:16 PM EST us Chrissy Bhagat MD LAB BLOOD ORDERABLES Final Res ult Performing Organization Address [facility] Co de Phone Number [facility] [address] [place] [address], [place] [phone] * (ABNORMAL) Acetaminophen level (10/19/2025 12:23 PM EST) Acetaminophen Level <2.0(L) 10.0 - 30.0 mcg/mL 10/19/2025 1:57 PM EST [facility] Blood Venous blood specimen / Unknown Venipuncture / Unknown 10/19/2025 12:23 PM EST 10/19/2025 1:16 PM EST us Chrissy Bhagat MD LAB BLOOD ORDERABLES Final Res ult Performing Organization Address [facility] de Phone Number [facility] [address] [place] [address], [place] [phone] * Salicylate level (10/19/2025 12:23 PM EST) Salicylate Level 22.7 2.0 - 29.0 mg/dL 10/19/2025 1:57 PM EST [facility] Blood Venous blood specimen / Unknown Venipuncture / Unknown 10/19/2025 12:23 PM EST 10/19/2025 1:16 PM EST us Chrissy Bhagat MD LAB BLOOD ORDERABLES Final Res ult Performing Organization Address City/[facility]/ZIP Co de Phone Number [facility] [address] [place] [address], [place] [phone] * (ABNORMAL) Comprehensive metabolic panel (10/19/2025 12:23 PM EST) Sodium 138 133 - 145 mmol/L 10/19/2025 1:57 PM [facility] Potassium 4.8 3.5 - 5.5 mmol/L 10/19/2025 1:57 PM [facility] Chloride 99 96 - 110 mmol/L 10/19/2025 1:57 PM [facility] CO2 27 21 - 32 mmol/L 10/19/2025 1:57 PM [facility] Anion Gap 12(H) 3 - 11 10/19/2025 1:57 PM [facility] Glucose 65(L) 70 - 100 mg/dL 10/19/2025 1:57 PM [facility] BUN 14 5 - 25 mg/dL 10/19/2025 1:57 PM [facility] Creatinine 1.15 0.70 - 1.30 mg/dL 10/19/2025 1:57 PM [facility] eGFR 72 >=60 mL/min/1. 73m2 10/19/2025 1:57 PM [facility] Comment:Calculation based on the Chronic Kidney Disease Epidemiology Collaboration (CKD-EPI) equation refit without adjustment for race. BUN/Creatinine Ratio 12.2 10/19/2025 1:57 PM [facility] Calcium 9.6 8.5 - 10.5 mg/dL 10/19/2025 1:57 PM [facility] AST (SGOT) 23 10 - 42 unit/L 10/19/2025 1:57 PM [facility] ALT (SGPT) 19 10 - 60 unit/L 10/19/2025 1:57 PM [facility] Alkaline Phosphatase 72 42 - 121 unit/L 10/19/2025 1:57 PM [facility] Total Protein 7.5 6.0 - 8.0 g/dL 10/19/2025 1:57 PM EST [facility] Albumin 4.7 3.2 - 5.0 g/dL 10/19/2025 1:57 PM EST [facility] Total Bilirubin 0.6 0.0 - 1.4 mg/dL 10/19/2025 1:57 PM EST [facility] Blood Venous blood specimen / Unknown Venipuncture / Unknown 10/19/2025 12:23 PM EST 10/19/2025 1:16 PM EST Chrissy Bhagat MD LAB BLOOD ORDERABLES Final Res ult [facility] [address] [place] [address], [place] [phone] * XR Shoulder 2+ Views Left (10/18/2025 1:18 PM EST) Anatomical Region Laterality Modality Upper Extremities, Shoulder Left Comp uted Radiography Narrative 10/19/2025 9:59 PM EST X-rays of the left shoulder in 4 views including an AP, Grashey, axillary, and Scap-Y, were obtained and reviewed today in the office. They demonstrate well-preserved glenohumeral joint space. There is well-preserved acromiohumeral interval. There are not degenerative changes of the acromioclavicular joint. Lis Walker MD IMG XR PROCEDURES Crystal l Result * MR Cervical Spine wo Contrast (09/14/2025 [...] Signed Date: 09/15/2025 16:42 ET Workstation ID: [id number] Transcribed By: Self Edit Transcribed Date: 09/14/2025 [...] Signed Date: 09/15/2025 16:42 ET Workstation ID: [id number] Transcribed By: Self Edit Transcribed Date: 09/14/2025 17:16 ET Dave CHENG IMG MRI PROCEDURES Final Resul t * HIV 1,2 antibody, p24 antigen with reflex to differentiation (01/07/2025 9:11 AM EST) HIV Combo AB/AG Negative Negative LAB CHEMISTRY METHOD 01/07/2025 2:35 PM EST [facility] Blood Venous blood specimen / Unknown Venipuncture / Unknown 01/07/2025 9:11 AM EST 01/07/2025 9:11 AM EST Narrative [facility] - 01/07/2025 2:35 PM EST [...] ORDERABLES Final Res ult Performing Organization Address [facility]/ZIP Co de Phone Number [facility] [address] [place] [address], [place] [phone] * Lipid panel with reflex to direct LDL (01/07/2025 9:11 AM EST) [facility] Cholesterol 121 0 - 200 mg/dL LAB CHEMISTRY METHOD 01/07/2025 12:22 PM EST [facility] Triglycerides 91 0 - 150 mg/dL LAB CHEMISTRY METHOD 01/07/2025 12:22 PM [facility] HDL 48 >=40 mg/dL LAB CHEMISTRY METHOD 01/07/2025 12:22 PM EST [facility] LDL Calculated 55 0 - 100 mg/dL LAB CHEMISTRY METHOD 01/07/2025 12:22 PM EST [facility] VLDL Cholesterol Samir 18.2 mg/dL LAB CHEMISTRY METHOD 01/07/2025 12:22 PM [facility] Non HDL Chol. (LDL+VLDL) 73 <145 mg/dL LAB CHEMISTRY METHOD 01/07/2025 12:22 PM [facility] Chol/HDL Ratio 2.5 0.0 - 4.4 LAB CHEMISTRY METHOD 01/07/2025 12:22 PM [facility] Blood Venous blood specimen / Unknown Venipuncture / Unknown 01/07/2025 9:11 AM EST 01/07/2025 9:11 AM EST us Dionicio Sherman MD LAB BLOOD ORDERABLES Final Res ult Performing Organization Address [facility]/ZIP Co de Phone Number [facility] [address] [place] [address], [place] [phone] * Hm Depression Screening (04/09/2024) Pathologist [facility] Depression Screening abstracted Historical Provider HEALTH MAINTENANCE Final Result * Colonoscopy (12/14/2019) [facility] Colonoscopy No interpreta tion,abstr acted Anatomical Region Laterality Modality Other Historical Provider HEALTH MAINTENANCE Final Result * Hepatitis C Screening (06/03/2018) [facility] Hepatitis C Screening abstracted Historical Provider HEALTH MAINTENANCE Final Result from Last 3 Months or Most Recently Relevant to Health Maintenance Insurance [facility] MEDICARE Member Subscriber Plan / Payer (Ef fective 2020-Present) Name:CJ SIMMONS Relation to Subscriber:Self Name:Cj Simmons Payer ID:[id number] Group ID:[id number] Type:Not on file Address: [place] [address] [address] [phone] Care Teams Cartography Professor Relationship Specialty Start Date End Date Dionicio Sherman MD [address] [place] [id number] PCP - General Internal Medicine 09/14/24
--- OUTSIDE RECORDS SUMMARY | 2025-11-08 17:26 | XMS_ITS | Data Portability ---
Author Organization [employer] [facility] Address [address] [place] [address] Care Team Providers Care Weblogic Developer Name Role Phone HIM CCA OTHER Assessment Encounter Date Assessment Date Assessment LastModified by Organization Details LastModified Time 02/07/2025 02/07/2025 I have reviewed and agree with the assessment and plan as documented by the fishing reel assembler. I provided real time medical direction for this encounter and was immediately available to provide additional phone based assistance as needed. History as noted by fishing reel assembler. Pt reporting 3 weeks of posterior neck pain which radiates into the trapezius M and shoulders bilaterally. No recent falls or injuries. Pt denies any extremity numbness, weakness or paresthesias. No JONES, CP, SOB, or vision changes. Pt is taking gabapentin once daily with some relief of the pain. Pt reports this had been prescribed for him for sleep, but he is taking it once during the day now for pain relief. No improvement with tylenol or alleve. Pt went to a chiropractor last week but his symptoms are not significantly improved. On exam, pt appears comfortable. Neck and b/l shoulders with full ROM. Neuro exam normal. Impression: Pt with posterior neck pain with radiation into both trapezius M and shoulders. No recent trauma. No concerning neurologic symptoms and current neuro exam is non focal. Pt's symptoms may be related to cervical disc disease and possible cervical radiculopathy. This is d/w the pt. Pt is told that he can increase his gabapentin to bid dosing since this seems to be helping his pain. Given possibility of cervical radiculopathy, pt is medicated with prednisone 60mg po now and I prescribe a prednisone taper from 60mg-->20mg over 6d that pt will start tomorrow. Pt has scheduled f/u with his PCP on February 16. Pt is told that if his symptoms are not improved significantly by the time of his PCP appointment, his doctor can refer him for a cervical spine MRI and f/u with orthopedics or physiatry for further management. Pt instructed to seek medical attention right away with any worsening or new symptoms, which are reviewed with him. [email or web address] Not available 02/07/2025 14:41:46 Plan of Treatment Reminders Order Date Submit Date Provider Last Modified By Organization Details Last Modified Time Details Appointments None recorded. Lab None recorded. Referral None recorded. Procedures None recorded. Surgeries None recorded. Imaging None recorded. Medication Orders Maalox Advanced 1,000 mg-60 mg chewable tablet 2024 025 [facility], [address] [place] [address], [id number], 21:35:46 prednisone 20 mg tablet 2024 025 [facility], [address] [place] [address], [id number], 14:36:20 prednisone 20 mg tablet 2024 025 [facility], [address] [place] [address], [id number], 14:30:20 Patient TargetsNo targets recorded. Patient InstructionsNo instructions recorded. Reason for Referral None Reported. Medical Equipment None Reported. Allergies No known drug allergies Medications Name Sig Start Date Stop Date Status Note LastModified by Organization Details LastModified Time prednisone 20 mg tablet Take 3 tabs by mouth once daily x2 days, thentake 2 tabs by mouth once daily x2 days, thentake 1 tab by mouth once daily x2 days active Not Available Not Available No t Available Vitals Date Recorded Oxygen saturation Heart rate Respiratory rate Body temperature Systolic And Diastolic Provider Name and Address Organization Details Last Updated DateTime 96 % 72 /min 18 /min 99.6 [degF] 158/88 mm[Hg] Not Available [facility] 14:20:07 Date Recorded Body height Oxygen saturation Respiratory rate Heart rate Body weight Body temperature Systolic And Diastolic Provider Name and Address Organization Details Last Updated DateTime 167.64 cm 98 % 14 /min 92 /min 62489.8 g 98 [degF] 145/94 mm[Hg] Not Available [facility] 20:43:49 Social History None recorded. Functional Status None recorded. Mental Status None recorded. Family History Nothing Reported. Medical History No medical history recorded. Past Encounters Encounter ID Performer Location Encounter Start Date Encounter Closed Date Diagnosis/Indication Diagnosis SNOMED-CT Code Diagnosis ICD10 Code Diagnosis IMO Codes Diagnosis Note [id number] [facility] [address] [place] [id number] 02/07/2025 14:20:02 02/07/2025 23:21:47 Neck pain 36399789 M54.2 Cervical radiculopathy 90772670 M54.12 [id number] [facility] [address] [phone] 04/19/2025 20:43:46 04/19/2025 22:36:25 Acute abdominal pain 253473173 R10.9 [id number] As noted, we were called to see this patient regarding concerns of abdominal pain. Evaluation in the field was performed by my fishing reel assembler colleague, as noted above, I provided real-time direction and supervisio n for this visit. The evaluation revealed 60 yo with prior gastric sleeve reports epigastric bloating and pain since this afternoon. He ate a regular lunch with chicken. He has no nausea/vom iting and had a normal BM this evening. He has tried pepto and gasx without response. On exam he is in no acute distress with normal VS. He has a mildly tender abdomen in the the epigastriu m with bloating. Impression :GERD Plan:revie wed possible diagnoses requiring imaging and transfer to ER. After discussion will trial maalox. Dispositio n: We discussed the diagnostic uncertaint y of home visits and the risk associated with this. In this case, the patient and I felt this to be an acceptable and reasonable amount of risk given the benefit of avoiding an ED visit. We discussed the need to seek care urgently/e mergently in the setting of any new or worsening serious symptoms, particular ly changes to consciousn ess, chest pain, dyspnea Health Concerns Section Related Observation LastModified by Organization Detai ls LastModified Time None Recorded Concern Status LastModified by Organization Details LastModified Time None Recorded Advance Directives Directive None Recorded Payers Insurance Date Sequence Insurance Name Policy Number Policy Cunningham Covered Member ID Cunningham Member ID Guarantor Name 04/19/2025 1 [facility] - DOS ON OR AFTER 2023 - DUAL ELIGIBLE - RETIREMENT OPTIONS AND ONE CARE (MEDICARE REPLACEMENT/ADV ANTAGE - HMO) Doroteo Simmons [id number] Doroteo Simmons Notes Date Note Type Note Provider Name and Address Organization Details Recorded Time 02/07/2025 text/html ROS as noted in the HPI This was a supervised home visit with fishing reel assembler Edson Fu. [facility] Nurse Triage Notes (Giana Jeffers): Reason For Request: Patient has shoulder pain. OTC medicine not helping, intense.Denies: Cook Flash, circumferential cook Cook reported with black tissue to the area Open skin area after a fall with uncontrolled bleeding Abscess/infection with streaking noted, presence of fever or without Chief Complaints: Extremity PainPMH: DepressionPMH Reviewed at 02/07/2025 - 12:59Allergies Reviewed at 02/07/2025 - 12:59Comments: Ebay Reseller verified the name//address and phone number. Pt calling for bilateral shoulder pain.He is currently off antidepressants; he stopped in November and feels this maybe withdrawal. he was on zoloft. He went to a chiropractor and was adjusted this am and a few times last week. He is taking tylenol and aleeve with no change. He was using warm massage, with no change. He denies any falls or injury. But he did have a fracture of ribs and clavicle , 7 years ago. He is meeting with his psychiatrist on Fri via video.Education provided on the response time and the Patient was advised to monitor reported s/s and seek emergency treatment if need ..................... ..................... ..................... ..................... ..................... ..................... ............... Envelope Addresser Note From Edson Fu: Encountered patient, conscious alert and ambulatory. Patient reports that for approximately three weeks he has been experiencing neck stiffness, as well as burning pain that radiates from his neck down the trapezius muscles bilaterally. Patient denies any numbness or tingling or weakness in any extremities. Patient denies chest pain, shortness of breath or acute changes in vision. Patient reports that he was previously prescribed 900 mg per day of gabapentin which he took for sleep but has been taking it during the day for his pain instead and has found moderate relief, patient reports that he does not take additional doses, but simply change the time of day which he was taking it. Patient also reports that he has been alternating between Aleve and Tylenol, which he reports has not been bringing any relief. Patient reports he has a follow up appointment with his primary care doctor on 02/16/25. Skin warm dry end of appropriate color for ethnicity. Head and neck free of trauma and edema.-JVD. Breath sounds are present clear and equal bilaterally. Abdomen is soft, nontender and non-distant. Extremities are free of trauma and edema. [facility] contacted: ENCOURAGES PATIENT TO MAKE HIS APPOINTMENT WITH PRIMARY CARE AND EXPRESSES PATIENT WOULD LIKELY BENEFIT FROM AN MRI FOR FURTHER IMAGING. Additionally, [facility] order 60 mg of PO prednisone to be administered, with a prescription to follow at patient s pharmacy of choice. [facility] further states patient can increase his gabapentin consumption to up to twice a day. Red flags discussed with patient, patient urged to seek further medical attention, including 911 if you were to develop priority symptoms, such as chest pain or shortness of breath or a Q changes and vision. Patient verbalizes understanding of the plan and is content with remaining at home at this time. [facility] Medication Orders: prednisone 20 mg tablet: Administered ..................... ..................... ..................... ..................... ..................... ..................... ............... [facility] Consulted: Nithin Gorman ..................... ..................... ..................... ..................... ..................... ..................... ............... Disposition: Maurice Gorman MD [address] [place] [address],[address], [place], [phone], Art [employer] 02/07/2025 15:12:35 04/19/2025 text/html [facility] Nurse Triage Notes (Giana Jeffers): Reason For Request: Pt reporting stomach ache/abdominal pain Patient Reports: Inability to tolerate foods, fluids or daily medications Denies: Sharp focal or diffuse abdominal pain Vomiting blood/coffee ground material Bloating, jaundice new onset with pain Nausea and vomiting greater than 2 hours with abdominal pain Tearing pain that radiates to back Food Impaction Vague abdominal pain greater than 24 hours Constipation Diarrhea no blood in stool Nausea with or without vomiting Chief Complaints: Abdominal Pain PMH: Depression, Other PMH Reviewed at 04/19/2025 - 18:06 Allergies Reviewed at 04/19/2025 - 18:06 Comments: 60 y.o male complains of Abdominal Pain Pt calling for stomach pain that started at noon. The pain is in the upper middle stomach. The pain is intermittent, could not rate pain. He does not want to move due to the pain. He took pepto and gasx. He does not have any nausea / vomiting/ fever/ chills. He has not had this pain in the past. He did eat today , he had chicken. He has a normal BM this am, no loose stool. He has had polyps and colostomy reversal due to this. I provided information on the mobile health provider response time and advised the patient and/or caregiver to monitor reported signs and symptoms. I discussed the warning signs of when to seek emergency care. ..................... ..................... ..................... ..................... ..................... ..................... ............... Envelope Addresser Note From Demarco Newton: Patient alert and oriented complains of upper abdominal pain two hours after eating, starting suddenly approximately six hours ago. Patient reports pain 10 out of 10, intermittent. Patient also reports upper abdominal swelling. Patient took Pepto and Gas-X with no change. Patient moved his bowels normally about two hours ago. Patient denies any other pain or complaint. Patient reports getting gastric sleeve four years ago., Has been stable with no change. Patient denies chest pain, nausea, vomiting, diarrhea, weakness, dizziness, difficulty breathing, fever, chills, or any other pain or complaint. Patient reports pain is a sharp pressure that comes and goes. Patient pink warm dry secondary exam unremarkable. Upper epigastric area, tender, appears slightly distended, puffy. Rest of abdomen, soft nontender, negative CVA tenderness. Negative rebound tenderness. Negative edema. Patient speaks full sentences negative increased work of breathing. [facility] orders, mag-al plus. Medication administered as noted. Using five rights without complication. Patient advised to attend hospital if needed for imaging. Patient reports he may go tomorrow but wants to try Maalox. Red flags, patient education discussed. ..................... ..................... ..................... ..................... ..................... ..................... ............... [facility] Consulted: Rosalee Priest ..................... ..................... ..................... ..................... ..................... ..................... ............... Disposition: Fulfilled Rosalee Priest MD [address] [facility],[address] [facility], [place], [phone], Art Sumo 04/19/2025 21:35:54
--- OUTSIDE RECORDS SUMMARY | 2025-11-08 17:26 | XMS_ITS | Encounter Summary ---
Author Organization [facility] Address [address] [place] [address] Encounters * CPT with Aaron Dubois at [facility] on 2025-04-20 { reasonForRequest : Pt reporting stomach ache/abdominal pain , patientRep orts : Inability to tolerate foods, fluids or daily medications , denies :[ Sharp focal or diffuse abdominal pain , Vomiting blood/coffee ground material , Bloating, jaundice new onset with pain , Nausea and vomiting greater than 2 hours with abdominal pain , Tearing pain that radiates to back , Food Impaction ,"Vague abdominal pain greater than 24 hours , Constipation , Diarrhea no blood in stool , Nausea with or without vomiting ], chiefComplaints :&quot ;Abdominal Pain , pmh : Depression, Other , allergies : No Known Drug Allergies , otherAllergies : , painAssessment : & quot;, visitOutcome : , additionalComments : 60 y.o male complains of Abdominal Pain\n\nPt calling for stomach pain that started at noon. The pain is in the upper middle stomach. The pain is intermittent, could not rate pain. \nHe does not want to move due to thepain. He took pepto and gasx. \nHe does not have any nausea / vomiting/ fever/ chills. He has not had this pain in the past. \nHe did eat today , he had chicken. He has a normal BM this am, no loose stool. \nHe has had polyps and colostomy reversal due to this. \n\nI provided information on the mobile health provider response time and advised the patient and/or caregiver to monitor reported signsand symptoms. I discussed the warning signs of when to seek emergency care. } Patient alert and oriented complains of upper [...] full sentences negative increased work of breathing. [facility] orders, mag-al plus. Medication administered as noted. Using five rights without complication. Patient advised to attend hospital if needed for imaging. Patient reports he may go tomorrow but wants to try Maalox. Red flags, patient education discussed. IV_(FLUIDS_AND/OR_MEDICATION), MEDICATION_IM Written by Aaron Dubois on 2025-04-20
== END 2025-11-08 14:15 | disposition home or self-care (01) ==
LOC: HO.HPHYS 13:34
PROVIDERS: PCP Internal Medicine; Visit Provider Physician Assistant
DX: M79.18 Myalgia, other site (principal)
CPT/HCPCS: 20552

== ENCOUNTER → 2025-11-08 13:33 | Outpatient (BNVA) | payer OTHER, SELFPAY | PROVIDERS: PCP Internal Medicine; Visit Provider Physician Assistant | DX: M79.18 Myalgia, other site (principal) | CPT/HCPCS: 20552; J2003 ==